=== PATIENT | female | born 1945 | race Caucasian/White ===

== ENCOUNTER 2020-08-15 15:56 | Inpatient (IN) | payer MEDICARE, OTHER, SELFPAY ==
[2020-08-15] VITALS (11 sets, daily range): BP systolic 120–166; BP diastolic 54–110; PULSE 76–94; RESP 17–28; TEMP 36.7–37; O2SAT 91–97; BMI 32.7
--- NOTE | ~2020-08-15 | XR_ITS ---
EXAMINATION: XR chest 1V portable DATE: 08/15/2020 16:27 INDICATION: Cough. Hypoxia. TECHNIQUE: A single frontal view of the chest was obtained. COMPARISON: None. FINDINGS: The chest demonstrates clear lungs without pneumonia, pleural effusion, or pneumothorax. Th e heart size is normal. IMPRESSION: 1. No acute cardiopulmonary disease. Reviewed, dictated and finalized at location B.
--- NOTE | 2020-08-15 16:08 | ECG_ITS ---
Measurements Intervals [place] Rate: 83 P: 100 MS: 161 QRS: -36 QRSD: 77 T: 64 QT: 361 QTc: 426 Interpretive Statements SINUS RHYTHM LEFT AXIS DEVIATION BASELINE ARTIFACT- I, II, III, AVR, AVL, AVF, V2-V6 BORDERLINE ECG Electronically Signed On 08-15-2020 17:40:51 CDT by Corby Tenorio D.O.
--- NOTE | 2020-08-15 16:08 | ED.SOB ---
HPI - SOB/Dyspnea General Chief Complaint: Shortness of Breath/Dyspnea Stated Complaint: O2 staturation low Time Seen by Provider: 08/15/20 16:08 Source: patient Mode of arrival: ambulatory Limitations: no limitations History of Present Illness HPI Narrative: Patient is a 75-year-old female with a history of hypertension who presents for evaluation of shortness of breath. Patient states she has had increasing shortness of breath over the past 48 hours. She reports cough with increased sputum production. Patient is a daily smoker over the past 50 years. She states now she only intermittently smokes. She denies history of COPD or emphysema. She does not utilize any home oxygen. Patient was seen in her primary care physician's office yesterday for evaluation was sent home on an antibiotic but was noted to have mildly low oxygen saturations in the office today patient has been dyspneic with normal activities of daily living prompting her visit to the emergency department. Patient is triaged with tachypnea, hypoxia, increased work of breathing. She is able to speak in full sentences. She has use of abdominal muscles to breathe. She is denying any chest pain. No leg swelling or leg pain. Denies history of covid vaccination. Related Data Home Medications Medication Instructions Recorded Confirmed alprazolam 1 mg tablet 1 mg PO TID PRN 06/06/19 04/09/20 amlodipine 5 mg tablet 5 mg PO DAILY 06/06/19 04/09/20 aspirin 325 mg tablet,delayed 325 mg PO DAILY 06/06/19 04/09/20 release celecoxib 100 mg capsule 100 mg PO BID 06/06/19 04/09/20 gabapentin 300 mg capsule 300 mg PO DAILY 06/06/19 04/09/20 metoprolol succinate 50 mg capsule 50 mg PO DAILY 06/06/19 04/09/20 sprinkle, ext. release 24 hr omega-3 fatty acids 1,000 mg 1,000 mg PO BID 06/06/19 04/09/20 capsule pantoprazole 40 mg tablet,delayed 40 mg PO QAM 06/06/19 04/09/20 release sennosides 8.6 mg-docusate sodium 1 tab-cap PO DAILY 06/06/19 04/09/20 50 mg tablet simvastatin 40 mg tablet 40 mg PO DAILY 06/06/19 04/09/20 tramadol 50 mg tablet 50 mg PO Q6H PRN 06/06/19 04/09/20 vitamin B12 500 mcg-folic acid 400 1 tablet PO DAILY 06/06/19 04/09/20 mcg tablet polysaccharide iron complex 150 mg 150 mg PO DAILY 09/19/19 04/09/20 iron capsule Allergies Allergy/AdvReac Type Severity Reaction Status Date / Time codeine Allergy Unknown unknown Verified 08/15/20 19:09 morphine Allergy Unknown Unknown Verified 08/15/20 19:09 Penicillins Allergy Unknown Unknown Verified 08/15/20 19:09 Review of Systems Review of Systems: Narrative: CONSTITUTIONAL: Denies fever, chills, or sweats. EYES: Denies visual changes, redness, or discharge. ENT: Denies rhinorrhea, congestion, sore throat, or otalgia. CARDIOVASCULAR: Denies chest pain, palpitations, or edema. RESPIRATORY: Reports cough and shortness of breath GASTROINTESTINAL: Denies abdominal pain, nausea, vomiting, or diarrhea. GENITOURINARY: Denies dysuria or hematuria. SKIN: Denies rash or itching. MUSCULOSKELETAL: Denies back pain, joint pain, or myalgia. NEUROLOGIC: Denies headache, numbness, or weakness. [facility] Past Medical History Medical History Edema leg Family history of cancer Family history of heart disease Family history of MS (multiple sclerosis) Surgical History Surgical History (Updated 08/15/20 @ 20:16 by Kaylynn Asher DO) Corneal transplant status right eye 2003 left eye 2004 History of aorto-femoral bypass (01/2006) bilateral History of cardiac catheterization (~2005) 40% proximal RCA occlusion (performed at [facility]) History of hernia repair (~2009) History of total left knee replacement (~2017) History of tubal ligation Hx of cholecystectomy Family History Family History (Updated 08/15/20 @ 20:10 by Kaylynn Asher DO) Mother Acute myocardial infarction Heart disease Father Family history of malignant neoplasm Other Multip
[2020-08-15] MEDS: SODIUM CHLORIDE 0.9% IV 1,000 ML 999 ML IV CONT (16:27)
[2020-08-15 16:39] LABS: Basophils Percent Auto 0.4 % (0.2-1.2); Hematocrit 59.3 % (37.0-47.0); Hemoglobin 18.9 g/dL (12.0-15.0); Immature Granulocyte Absolute 0.01 K/mm3 (0.00-0.031); Immature Granulocyte Percent A 0.1 % (0-0.5); Lymphocytes Absolute Auto 1.26 K/mm3 (0.9-3.2); Lymphocytes Percent Auto 17.4 % (18.3-44.2); Mean Corpuscular HGB Conc 31.9 g/dl (32-36); Mean Corpuscular Hemoglobin 30.7 pg (26-34); Mean Corpuscular Volume 96.4 fl (80-100); Mean Platelet Volume 10.4 fl (7.4-10.4); Monocytes Absolute Auto 0.8 K/mm3 (0.1-0.6); Monocytes Percent Auto 11.2 % (2.6-8.5); Neutrophils Absolute Auto 5.1 K/mm3 (1.3-6.7); Neutrophils Percent Auto 70.9 % (45.5-73.1); Platelet Count Result 135 k/mm3 (150-375); Red Blood Count 6.15 M/mm3 (4.2-5.4); White Blood Count 7.3 K/mm3 (4.5-10.0)
[2020-08-15 16:44] LABS: Alveolar/Arterial O2 Gradient 187.7 mmHg; Base Excess ABG 1.3 mEq/l (+/-2.0); Carboxyhemoglobin 2.2 % THb (0-2.0); Fractional Inspired Oxygen 52 %; HCO3 ABG 31.3 mEq/l (22.0-26.0); Methemoglobin ABG 0.4 %THb (0-1.5); Oxygen Content ABG 24.1 %vol (16.0-22.0); Oxygen Saturation ABG 96.7 % (95.0-100.0); Oxyhemoglobin 94.5 % THb (90.0-100.0); PO2 ABG 102.9 mmHg (80.0-100.0); PO2 FiO2 Ratio Arterial Blood 1.98 %; Reduced Hemoglobin 2.9 %THb (0-5.0); Total Hemoglobin 18.1 g/dL (12.0-18.0)
[2020-08-15 16:45] LABS: Device HIGH FLOW NASAL CANN; Modified Allen's Test Pass; PCO2 ABG 71.6 mmHg (35.0-45.0); Site Drawn LEFT RADIAL; pH ABG 7.259 (7.350-7.450)
[2020-08-15 16:47] LABS: Prothrombin Time 13.4 Seconds (11.1-14.7)
[2020-08-15 16:48] LABS: Partial Thromboplastin Time 26.8 SECONDS (22.3-36.8)
[2020-08-15 16:52] LABS: Alanine Aminotransferase 17 U/L (4-35); Albumin Level 4.6 g/dL (3.5-5.1); Alkaline Phosphatase 103 U/L (38-126); Anion Gap 9 mmol/L (8-16); Aspartate Amino Transferase 28 U/L (14-36); Bilirubin,Total 0.9 mg/dL (0.2-1.3); Blood Urea Nitrogen 10 mg/dL (7-17); CRP 1.6 mg/dL (<1.0); Calcium 9.4 mg/dL (8.4-10.2); Carbon Dioxide 32 mmol/L (22-30); Chloride 97 mmol/L (98-107); Estimated Glomerular Filt Rate > 60; Glucose 122 mg/dL (65-105); Potassium 4.1 mmol/L (3.4-5.0); Sodium 138 mmol/L (137-145)
[2020-08-15] MEDS: IPRATROPIUM BR 0.02% INH SOLN 0.5 MG/2.5 ML VIAL 1 MG INHALATION (16:55)
[2020-08-15] MEDS: ALBUTEROL SULFATE NEB 2.5 MG/0.5 ML INH 20 MG INHALATION (16:55)
[2020-08-15 17:06] LABS: NT Pro B Type Natriuretic Pept 1680 pg/mL (5-100); Troponin I 0.071 ng/mL (0.000-0.034)
[2020-08-15] MEDS: methylPREDNISolone SOD SUCC 125 MG VIAL IV PUSH (17:07)
[2020-08-15] MEDS: MAGNESIUM SULF 2 GM/WATER 50ML 2 GM/50 ML BAG IVPB (17:07)
[2020-08-15 17:22] LABS: Lactic Acid Reflex 1.1 mmol/L (0.7-2.1)
[2020-08-15 18:08] LABS: Alveolar/Arterial O2 Gradient 104.8 mmHg; Base Excess ABG -4.4 mEq/l (+/-2.0); Carboxyhemoglobin 2.3 % THb (0-2.0); Fractional Inspired Oxygen 35 %; HCO3 ABG 23.3 mEq/l (22.0-26.0); Methemoglobin ABG 0.3 %THb (0-1.5); Oxygen Content ABG 23.5 %vol (16.0-22.0); Oxygen Saturation ABG 94.8 % (95.0-100.0); PCO2 ABG 52.3 mmHg (35.0-45.0); Reduced Hemoglobin 5.4 %THb (0-5.0); Total Hemoglobin 18.2 g/dL (12.0-18.0)
[2020-08-15 18:09] LABS: Device NON-INVASIVE VENT; Modified Allen's Test Pass; Site Drawn LEFT RADIAL; pH ABG 7.267 (7.350-7.450)
[2020-08-15 18:10] LABS: Non-Invasive Expiratory Pressure 5 CMH2O; Non-Invasive Inspiratory Pressure 15 CMH2O; Non-Invasive Vent Rate 4 /MIN
[2020-08-15 18:48] LABS: Add Urine Microscopic? NO; Appearance Urine Clear (Clear); Bilirubin Urine Negative (Negative); Blood Urine Negative (Negative); Color Urine Yellow (Yellow); Glucose Urine UA Negative (Negative); Ketones Urine Negative (Negative); Leukocyte Esterase Ur Negative LEU/UL (Negative); Nitrate Urine Negative (Negative); Protein Urine Negative (Negative); Specific Grav Ur 1.008 (1.001-1.035); Urobilinogen Urine Negative mg/dL (<2.0)
--- NOTE | 2020-08-15 19:34 | PC.NURSE ---
HILLARYAR faxed to IMU department by MERCEDES Chiang at 1920 p.m. This patient to go to IMU bed 211.
--- NOTE | 2020-08-15 19:59 | PM.IMHP ---
H&P: HPI History of Present Illness Date/Time: 08/15/20 19:59 Chief Complaint: Shortness of breath Narrative: 75-year-old female with past medical history of peripheral artery disease, COPD and continued tobacco use who presented to the ER with cough, shortness of breath and hypoxia. The patient had went to her primary care physician's office on 08/14/2020 due to cough and shortness of breath. At that time she had a COVID test completed which came back negative today. She reports that she has been having cough productive of clear sputum since the . She denies any recent ill contacts. She has not received a COVID vaccine. She reported a temperature of 99? on 06/14/2020. She had some associated cold chills. She denies any chest pain. She has not noticed any wheezing. She reports that she feels similar to when she had pneumonia in the past. She denies any lower extremity swelling, orthopnea or paroxysmal nocturnal dyspnea. She has had some decreased appetite. She has not had any nausea or vomiting. She does have occasional constipation but none recently. She has had some stress urinary incontinence due to her coughing. She denies any dysuria, hematuria or changes in urinary urgency. She reports that when she went to her doctor's office on the her oxygen level was down in the 70s . She was told to come back to office the next day for re-evaluation . She was given a shot which I assume was a steroid injection and sent home with azithromycin. She has taken 2 days of the azithromycin without improvement in her symptoms. Review of Systems Review of Systems: Narrative: 12 systems were reviewed with pertinent positives and negatives per HPI. Except as documented in the HPI, all other systems were reviewed and are negative. [facility] Past Medical History Medical History (Updated 08/15/20 @ 21:38 by Kaylynn Asher DO) Anxiety Continuous tobacco abuse COPD (chronic obstructive pulmonary disease) Diastolic dysfunction (~05/2017) EF 60-65% with grade 1 diastolic dysfunction and trace mitral valve regurgitation GERD (gastroesophageal reflux disease) Hypertension Obesity PAD (peripheral artery disease) right aortofemoral bypass, left peroneal occlusion Right retinal detachment SLE (systemic lupus erythematosus) Surgical History Surgical History (Updated 08/15/20 @ 22:36 by Kaylynn Asher DO) Corneal transplant status right eye 2003 left eye 2005 History of aorto-femoral bypass (01/2006) bilateral History of appendectomy History of cardiac catheterization (~2005) 40% proximal RCA occlusion (performed at [place]) History of hernia repair (~2009) 10 ventral hernias that were all repaired time 1 operative procedure History of total left knee replacement (~2017) History of tubal ligation Hx of cholecystectomy (~1969) Family History Family History Mother Acute myocardial infarction Heart disease, Onset Age: 53 Father Lung cancer Alcoholic cirrhosis Sibling Throat cancer brother who is Multiple sclerosis younger sister who is Intracerebral aneurysm sister who during childbirth from aneurysm Lymphoma sister Social History Social History (Updated 08/15/20 @ 21:43 by Kaylynn Asher DO) Social History: She lives in [facility] with her of 43 years. She has smoked as much as packs of cigarettes per week since the age of 15. she is currently down to smoking a few puffs of a cigarette a day. She denies any alcohol or illicit substance use. 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 She has a daughter and a son. Primary care physician: Dr. Jesús Montes Code status: Full code Surrogate decision maker: Smoking packs per day: 0.10 Smoking cigarettes per day: 2.0 Years smoked: 46 Smoking pack-years: 4.60 Smoking status: Current some day smoker Josue
--- NOTE | 2020-08-15 21:49 | PC.NURSE ---
Report received from MERCEDES Azevedo with the ED by telephone at 3107 p.m.. All questions answered and plan of care reviewed. Patient to be admitted into IMU bed 211.
--- NOTE | 2020-08-15 21:50 | PC.NURSE ---
Dr. Buckner called and gave nurse report to IMU.
--- NOTE | 2020-08-15 22:15 | ADMGEN ---
This patient, Kelsey Mishra, was admitted to IMU Room 211-01 at 2204 p.m from the ED. Patient/family oriented to hospital policies and general routines including ID bracelet, bed and alarms, visiting hours, pain management, procedures, bathroom and other care routines, personal items, smoking policy, room service/diet, and visiting hours. Information on how to activate the Rapid Response Team has been discussed. Patient/Family are encouraged to report perceived risks to care and to ask questions if they do not understand what they are told or what they should do.
[2020-08-15 22:41] LABS: Troponin I 0.064 ng/mL (0.000-0.034)
[2020-08-15 23:55] LABS: Troponin I 0.059 ng/mL (0.000-0.034)
[2020-08-16] VITALS (19 sets, daily range): BP systolic 108–135; BP diastolic 54–74; PULSE 57–99; RESP 18–24; TEMP 36.3–37; O2SAT 91–97
[2020-08-16] MEDS: methylPREDNISolone SOD SUCC 125 MG VIAL 60 MG IV PUSH ×5 (00:40→23:40)
[2020-08-16] MEDS: IPRATROPIUM BR 0.02% INH SOLN 0.5 MG/2.5 ML VIAL INHALATION ×4 (02:03→20:42)
[2020-08-16] MEDS: ALBUTEROL SULFATE NEB 2.5 MG/0.5 ML INH 5 MG INHALATION ×4 (02:03→20:42)
[2020-08-16 04:58] LABS: Fractional Inspired Oxygen 35 %; HCO3 ABG 30.9 mEq/l (22.0-26.0); Oxygen Content ABG 22.9 %vol (16.0-22.0); Oxyhemoglobin 93.3 % THb (90.0-100.0); PO2 ABG 78.9 mmHg (80.0-100.0); PO2 FiO2 Ratio Arterial Blood 2.25 %; Total Hemoglobin 17.5 g/dL (12.0-18.0); pH ABG 7.294 (7.350-7.450)
[2020-08-16 04:59] LABS: Hematocrit 55.2 % (37.0-47.0); Hemoglobin 17.2 g/dL (12.0-15.0); Immature Platelet Fraction Pct 4.6 % (0.9-11.2); Mean Corpuscular HGB Conc 31.2 g/dl (32-36); Mean Corpuscular Hemoglobin 30.5 pg (26-34); Mean Corpuscular Volume 97.9 fl (80-100); Mean Platelet Volume 10.5 fl (7.4-10.4); Platelet Count Result 103 k/mm3 (150-375); Red Blood Count 5.64 M/mm3 (4.2-5.4); Red Cell Distribution Width 12.8 % (11.5-14.5); White Blood Count 2.7 K/mm3 (4.5-10.0)
[2020-08-16 05:00] LABS: PCO2 ABG 65.1 mmHg (35.0-45.0)
[2020-08-16 05:01] LABS: Device BIPAP; Expiratory Pressure 5 cmH2O; Inspiratory Pressure 15 cmH2O; Modified Allen's Test Pass; Site Drawn RIGHT RADIAL
[2020-08-16 05:11] LABS: Anion Gap 5 mmol/L (8-16); Blood Urea Nitrogen 10 mg/dL (7-17); Calcium 8.7 mg/dL (8.4-10.2); Carbon Dioxide 33 mmol/L (22-30); Chloride 101 mmol/L (98-107); Estimated Glomerular Filt Rate > 60; Glucose 155 mg/dL (65-105); Potassium 4.2 mmol/L (3.4-5.0); Sodium 139 mmol/L (137-145)
--- NOTE | 2020-08-16 06:00 | ECG_ITS ---
Measurements Intervals [place] Rate: 65 P: 102 [place]: 167 QRS: -30 QRSD: 74 T: 17 QT: 425 QTc: 442 Interpretive Statements SINUS RHYTHM BASELINE ARTIFACT- II, V4, V6 NORMAL ECG Electronically Signed On 08-16-2020 10:54:07 CDT by Corby Tenorio D.O.
[2020-08-16 10:06] LABS: Base Excess ABG 1.7 mEq/l (+/-2.0); Carboxyhemoglobin 0.7 % THb (0-2.0); Fractional Inspired Oxygen 35 %; HCO3 ABG 29.5 mEq/l (22.0-26.0); Oxygen Content ABG 24.2 %vol (16.0-22.0); Oxygen Saturation ABG 96.2 % (95.0-100.0); PCO2 ABG 57.7 mmHg (35.0-45.0); PO2 ABG 90.5 mmHg (80.0-100.0); PO2 FiO2 Ratio Arterial Blood 2.59 %; Reduced Hemoglobin 4.3 %THb (0-5.0); Total Hemoglobin 18.1 g/dL (12.0-18.0); pH ABG 7.327 (7.350-7.450)
[2020-08-16 10:08] LABS: Device NON-INVASIVE VENT; Modified Allen's Test Pass; Site Drawn LEFT RADIAL
[2020-08-16 10:09] LABS: Non-Invasive Vent Rate 10 /MIN
[2020-08-16] MEDS: NIACIN SA 500 MG TABLET PO ×2 (10:09→18:07)
[2020-08-16] MEDS: OMEGA 3 POLYUNSAT FATTY ACIDS 1 GM CAP PO ×2 (10:09→18:07)
[2020-08-16] MEDS: CYANOCOBALAMIN 500 MCG TABLET PO (10:09)
[2020-08-16] MEDS: ASPIRIN 325 MG ENTERIC TABLET PO (10:09)
[2020-08-16] MEDS: CANDESARTAN CILEXETIL 4 MG TABLET PO (10:09)
[2020-08-16] MEDS: amLODIPine BESYLATE 5 MG TABLET PO (10:09)
[2020-08-16 10:10] LABS: Non-Invasive Expiratory Pressure 5 CMH2O; Non-Invasive Inspiratory Pressure 18 CMH2O
[2020-08-16] MEDS: FOLIC ACID 0.4 MG TABLET PO (10:10)
[2020-08-16] MEDS: ENOXAPARIN 40 MG/0.4 ML SYRINGE SUB-Q (10:10)
[2020-08-16] MEDS: PANTOPRAZOLE 40 MG TABLET PO (10:10)
[2020-08-16] MEDS: ALPRAZolam (*CRX) 0.5 MG TABLET 1 MG PO ×3 (10:35→18:08)
[2020-08-16 15:11] LABS: Base Excess ABG 4.6 mEq/l (+/-2.0); Oxygen Saturation ABG 92.4 % (95.0-100.0)
[2020-08-16 15:12] LABS: Total Hemoglobin 17.5 g/dL (12.0-18.0)
[2020-08-16 15:13] LABS: Oxyhemoglobin 92.4 % THb (90.0-100.0)
[2020-08-16 15:14] LABS: Alveolar/Arterial O2 Gradient 148.4 mmHg; Device NON-INVASIVE VENT; Fractional Inspired Oxygen 40 %; Modified Allen's Test Pass; Oxygen Content ABG 22.7 %vol (16.0-22.0); Site Drawn LEFT RADIAL
[2020-08-16 15:15] LABS: Non-Invasive Expiratory Pressure 5 CMH2O; Non-Invasive Inspiratory Pressure 18 CMH2O; Non-Invasive Vent Rate 10 /MIN
[2020-08-16 16:11] LABS: SARS-CoV-2 RNA PCR Negative
--- NOTE | 2020-08-16 16:30 | PM.IMPN ---
Progress Note: A&P Assessment and Plan (1) Acute respiratory failure with hypoxia and hypercapnia: Code(s): J96.01 - Acute respiratory failure with hypoxia; J96.02 - Acute respiratory failure with hypercapnia Status: Acute Assessment and Plan: The patient has acute hypoxic hypercarbic respiratory failure due to COPD exacerbation. Patient has been admitted as inpatient. She remains on BiPAP with improvement in her pCO2 but not much improvement in her respiratory acidosis. Will continue patient on IV Solu-Medrol 60 mg q.6 hours. Repeat ABG has been ordered for a.m.. Patient will remain on BiPAP overnight and 15/5. Continue scheduled nebulizer treatments with albuterol and Atrovent. 08/16 Patient is 75 year female with history of COPD unfortunately patient still smokes found to have exacerbation of COPD being treated with Solu-Medrol, updraft and Pulmicort, added doxycycline to cover for atypical, patient is being retest for COVID-19 isolated, the ABG today showed remains hypercapnic we have adjusted patient's BiPAP repeat ABG and further recommendation to follow (2) Acute exacerbation of chronic obstructive airways disease: Code(s): J44.1 - Chronic obstructive pulmonary disease with (acute) exacerbation Status: Acute Assessment and Plan: Plan is above (3) Tobacco abuse: Code(s): Z72.0 - Tobacco use Status: Acute Assessment and Plan: Patient was counseled by copy center associate (4) Polycythemia secondary to smoking: Code(s): D75.1 - Secondary polycythemia Status: Acute Assessment and Plan: Remains clinically stable will monitor Additional Plan The patient has acute hypoxic hypercarbic respiratory failure due to COPD exacerbation. Patient has been admitted as inpatient. She remains on BiPAP with improvement in her pCO2 but not much improvement in her respiratory acidosis. Will continue patient on IV Solu-Medrol 60 mg q.6 hours. Repeat ABG has been ordered for a.m.. Patient will remain on BiPAP overnight and 15/5. Continue scheduled nebulizer treatments with albuterol and Atrovent. 3 minutes was spent in tobacco cessation education. The patient was seen and examined while still in the ER. Subjective Date/time seen: The patient has acute hypoxic hypercarbic respiratory failure due to COPD exacerbation. Patient has been admitted as inpatient. She remains on BiPAP with improvement in her pCO2 but not much improvement in her respiratory acidosis. Will continue patient on IV Solu-Medrol 60 mg q.6 hours. Repeat ABG has been ordered for a.m.. Patient will remain on BiPAP overnight and 03/08. Continue scheduled nebulizer treatments with albuterol and Atrovent. 08/16 Patient is 75 year female with history of COPD unfortunately patient still smokes found to have exacerbation of COPD being treated with Solu-Medrol, updraft and Pulmicort, added doxycycline to cover for atypical, patient is being retest for COVID-19 isolated, the ABG today showed remains hypercapnic we have adjusted patient's BiPAP repeat ABG and further recommendation to follow Review of Systems Review of Systems: All systems reviewed & are unremarkable except as noted in HPI and below Objective Data Vital Signs Vital Signs: Vital Signs - 24 hr 08/15/20 17:03 08/15/20 17:04 08/15/20 17:50 Temperature Pulse Rate 80 80 87 Respiratory Rate 19 19 17 Blood Pressure Pulse Oximetry 97 08/15/20 18:32 08/15/20 18:53 08/15/20 22:04 Temperature 98.1 F Pulse Rate 84 83 76 Respiratory Rate 28 H 22 H 18 Blood Pressure 154/110 H 143/54 H 120/58 L Pulse Oximetry 94 96 92 08/15/20 22:13 08/15/20 23:30 08/16/20 00:00 Temperature Pulse Rate 83 94 91 Respiratory Rate 20 Blood Pressure Pulse Oximetry 96 92 08/16/20 00:07 08/16/20 02:00 08/16/20 02:05 Temperature 98.6 F Pulse Rate 83 99 84 Respiratory Rate 22 H 20 Blood Pressure 119/59 L Pulse Oximetry 95
[2020-08-16] MEDS: BUDESONIDE RESPULE NEB 0.5 MG/2 ML AMP INHALATION (20:41)
[2020-08-16] MEDS: METOPROLOL SUCCINATE EXT REL 50 MG TABCR PO (21:26)
[2020-08-16] MEDS: SENNA/DOCUSATE SODIUM TABLET 1 TAB PO (21:26)
[2020-08-16] MEDS: GABAPENTIN 300 MG CAPSULE PO (21:27)
[2020-08-16] MEDS: SIMVASTATIN 20 MG TABLET 40 MG PO (21:27)
[2020-08-17] VITALS (27 sets, daily range): BP systolic 99–132; BP diastolic 43–85; PULSE 48–88; RESP 18–24; TEMP 36.1–37.1; O2SAT 91–95
[2020-08-17] MEDS: IPRATROPIUM BR 0.02% INH SOLN 0.5 MG/2.5 ML VIAL INHALATION ×4 (03:21→19:43)
[2020-08-17] MEDS: ALBUTEROL SULFATE NEB 2.5 MG/0.5 ML INH 5 MG INHALATION ×4 (03:21→19:43)
[2020-08-17] MEDS: methylPREDNISolone SOD SUCC 125 MG VIAL 60 MG IV PUSH ×4 (05:26→23:41)
[2020-08-17] MEDS: BUDESONIDE RESPULE NEB 0.5 MG/2 ML AMP INHALATION ×2 (08:04→19:43)
[2020-08-17 08:23] LABS: Alveolar/Arterial O2 Gradient 119.6 mmHg; Base Excess ABG 1.8 mEq/l (+/-2.0); Fractional Inspired Oxygen 40 %; HCO3 ABG 30.1 mEq/l (22.0-26.0); Oxygen Saturation ABG 96.6 % (95.0-100.0); Oxyhemoglobin 95.6 % THb (90.0-100.0); PO2 ABG 95.9 mmHg (80.0-100.0); Total Hemoglobin 17.8 g/dL (12.0-18.0); pH ABG 7.314 (7.350-7.450)
[2020-08-17 08:26] LABS: Device NON-INVASIVE VENT; Modified Allen's Test Pass; Non-Invasive Expiratory Pressure 8 CMH2O; Non-Invasive Inspiratory Pressure 20 CMH2O; Non-Invasive Vent Rate 18 /MIN; PCO2 ABG 60.6 mmHg (35.0-45.0); Site Drawn RIGHT RADIAL
[2020-08-17 08:26] LABS: Hematocrit 57.3 % (37.0-47.0); Hemoglobin 17.9 g/dL (12.0-15.0); Mean Corpuscular HGB Conc 31.2 g/dl (32-36); Mean Corpuscular Hemoglobin 30.4 pg (26-34); Mean Corpuscular Volume 97.4 fl (80-100); Mean Platelet Volume 10.2 fl (7.4-10.4); Platelet Count Result 109 k/mm3 (150-375); Red Blood Count 5.88 M/mm3 (4.2-5.4); White Blood Count 6.9 K/mm3 (4.5-10.0)
[2020-08-17] MEDS: ALPRAZolam (*CRX) 0.5 MG TABLET 1 MG PO ×3 (08:30→21:07)
[2020-08-17] MEDS: NIACIN SA 500 MG TABLET PO ×2 (08:32→18:06)
[2020-08-17] MEDS: ASPIRIN 325 MG ENTERIC TABLET PO (08:33)
[2020-08-17] MEDS: amLODIPine BESYLATE 5 MG TABLET PO (08:33)
[2020-08-17] MEDS: PANTOPRAZOLE 40 MG TABLET PO (08:33)
[2020-08-17] MEDS: FOLIC ACID 0.4 MG TABLET PO (08:33)
[2020-08-17] MEDS: OMEGA 3 POLYUNSAT FATTY ACIDS 1 GM CAP PO ×2 (08:33→18:07)
[2020-08-17] MEDS: CANDESARTAN CILEXETIL 4 MG TABLET PO (08:34)
[2020-08-17] MEDS: CYANOCOBALAMIN 500 MCG TABLET PO (08:34)
[2020-08-17] MEDS: ENOXAPARIN 40 MG/0.4 ML SYRINGE SUB-Q (08:35)
--- NOTE | 2020-08-17 08:35 | PM.IMPN ---
Progress Note: A&P Assessment and Plan (1) Acute respiratory failure with hypoxia and hypercapnia: Code(s): J96.01 - Acute respiratory failure with hypoxia; J96.02 - Acute respiratory failure with hypercapnia Status: Acute Assessment and Plan: IV Solu-Medrol 60 mg q.6 hours. BiPAP overnight at 15/5. Continue scheduled nebulizer treatments with albuterol and Atrovent. Doxycycline (2) Acute exacerbation of chronic obstructive airways disease: Code(s): J44.1 - Chronic obstructive pulmonary disease with (acute) exacerbation Status: Acute Assessment and Plan: Plan is above (3) Tobacco abuse: Code(s): Z72.0 - Tobacco use Status: Acute Assessment and Plan: Smoking cessation discussed. (4) Polycythemia secondary to smoking: Code(s): D75.1 - Secondary polycythemia Status: Acute Assessment and Plan: Stable (5) Thrombocytopenia: Code(s): D69.6 - Thrombocytopenia, unspecified Status: Acute Assessment and Plan: 08/17 stop enoxaparin and use SCDs for DVT prophylaxis Subjective Date/time seen: 08/17/20 08:35 Interval history: 08/17: Denied sob. Adamant re: no oxygen or cpap/bipap at home. Is willing to quit smoking. Review of Systems Review of Systems: All systems reviewed & are unremarkable except as noted in HPI and below Exam Narrative: Exam Narrative: HEENT: EOMI, PERRL, sclerae nonicteric, pharyngeal mucosa pink and intact NECK: No JVD, adenopathy, or thyromegaly CHEST: Coarse BS with mild insp and exp wheezes, increase AP diameter, prolonged exp phase HEART: NL S1/S2, regular, no murmur ABDOMEN: BS+, soft, nontender, no mass, no bruits EXTREMITIES: No cyanosis, edema, or clubbing NEUROLOGIC: CN intact and symmetric to inspection. MUSCULOSKELETAL: Tone and strength symmetric. PSYCH: Alert. Oriented to person, place, and time. Objective Data Vital Signs Vital Signs: Vital Signs - 24 hr 08/16/20 10:00 08/16/20 12:00 08/16/20 14:00 Temperature 98.2 F Pulse Rate 61 57 L 61 Respiratory Rate 18 Blood Pressure 126/64 Pulse Oximetry 94 08/16/20 15:24 08/16/20 16:00 08/16/20 18:00 Temperature Pulse Rate 90 62 63 Respiratory Rate 22 H 20 Blood Pressure 124/54 L Pulse Oximetry 94 94 08/16/20 20:00 08/16/20 20:43 08/16/20 20:58 Temperature 97.5 F L Pulse Rate 58 L 58 L 59 L Respiratory Rate 18 23 H 23 H Blood Pressure 108/56 L Pulse Oximetry 92 91 08/16/20 21:26 08/16/20 22:00 08/16/20 23:39 Temperature 97.7 F Pulse Rate 77 76 59 L Respiratory Rate 18 Blood Pressure 121/55 L Pulse Oximetry 94 08/17/20 00:00 08/17/20 02:00 08/17/20 03:21 Temperature Pulse Rate 73 51 L 70 Respiratory Rate 22 H Blood Pressure Pulse Oximetry 94 93 08/17/20 03:26 08/17/20 03:48 08/17/20 04:00 Temperature 97.4 F L Pulse Rate 58 L 49 L Respiratory Rate 24 H 20 Blood Pressure 132/85 Pulse Oximetry 94 95 08/17/20 06:00 08/17/20 07:52 Temperature 98 F Pulse Rate 48 L 84 Respiratory Rate 20 Blood Pressure 121/53 L Pulse Oximetry 95 Intake/Output Intake/Output: Intake & Output 08/14/20 08/15/20 08/16/20 08/17/20 23:59 23:59 23:59 23:59 Intake Total 1050 500 Output Total 1175 600 Balance 1050 -675 -600 Meds/Results Medications: Active Medications Generic Name Dose Route Start Last Admin Trade Name Asif PRN Reason Stop Dose Admin Albuterol 5 mg 08/15/20 20:00 08/17/20 08:04 Albuterol Sulfate Neb 2.5 Mg/0.5 Ml Inh INHALATION 5 mg Q6HRT INA Administration Alprazolam 1 mg 08/16/20 13:00 08/16/20 18:08 Alprazolam (*Crx) 0.5 Mg Tablet PO 1 mg TID INA Administration Amlodipine Besylate 5 mg 08/16/20 09:00 08/16/20 10:09 Amlodipine Besylate 5 Mg Tablet PO 5 mg DAILY INA Administration Aspirin 325 mg 08/16/20 09:00 08/16/20 10:09 Aspirin 325 Mg Enteric Tablet PO 325 mg DAILY INA Administrat
[2020-08-17 08:50] LABS: Anion Gap 5 mmol/L (8-16); Blood Urea Nitrogen 22 mg/dL (7-17); Carbon Dioxide 32 mmol/L (22-30); Chloride 101 mmol/L (98-107); Estimated Glomerular Filt Rate > 60; Glucose 148 mg/dL (65-105); Potassium 4.4 mmol/L (3.4-5.0); Sodium 138 mmol/L (137-145)
[2020-08-17] MEDS: SIMVASTATIN 20 MG TABLET 40 MG PO (21:06)
[2020-08-17] MEDS: SENNA/DOCUSATE SODIUM TABLET 1 TAB PO (21:06)
[2020-08-17] MEDS: METOPROLOL SUCCINATE EXT REL 50 MG TABCR PO (21:07)
[2020-08-17] MEDS: GABAPENTIN 300 MG CAPSULE PO (21:07)
[2020-08-18] VITALS (25 sets, daily range): BP systolic 114–132; BP diastolic 44–86; PULSE 54–95; RESP 18–22; TEMP 36.1–36.6; O2SAT 88–98
[2020-08-18] MEDS: IPRATROPIUM BR 0.02% INH SOLN 0.5 MG/2.5 ML VIAL INHALATION ×4 (01:53→19:51)
[2020-08-18] MEDS: ALBUTEROL SULFATE NEB 2.5 MG/0.5 ML INH 5 MG INHALATION ×4 (01:53→19:50)
[2020-08-18 04:26] LABS: Alveolar/Arterial O2 Gradient 123.8 mmHg; Base Excess ABG 3.3 mEq/l (+/-2.0); Carboxyhemoglobin 0.3 % THb (0-2.0); Fractional Inspired Oxygen 40 %; HCO3 ABG 30.9 mEq/l (22.0-26.0); Methemoglobin ABG 0.2 %THb (0-1.5); Oxygen Content ABG 23.1 %vol (16.0-22.0); Oxygen Saturation ABG 96.8 % (95.0-100.0); Oxyhemoglobin 96.1 % THb (90.0-100.0); PCO2 ABG 57.7 mmHg (35.0-45.0); PO2 FiO2 Ratio Arterial Blood 2.38 %; Reduced Hemoglobin 3.4 %THb (0-5.0); Total Hemoglobin 17.1 g/dL (12.0-18.0); pH ABG 7.346 (7.350-7.450)
[2020-08-18 04:28] LABS: Device NON-INVASIVE VENT; Modified Allen's Test Pass; Non-Invasive Inspiratory Pressure 20 CMH2O; Non-Invasive Vent Rate 18 /MIN; Site Drawn RIGHT RADIAL
[2020-08-18 04:29] LABS: Hematocrit 53.3 % (37.0-47.0); Hemoglobin 16.9 g/dL (12.0-15.0); Immature Platelet Fraction Pct 4.7 % (0.9-11.2); Mean Corpuscular HGB Conc 31.7 g/dl (32-36); Mean Corpuscular Hemoglobin 30.8 pg (26-34); Mean Corpuscular Volume 97.3 fl (80-100); Mean Platelet Volume 10.6 fl (7.4-10.4); Platelet Count Result 125 k/mm3 (150-375); Red Blood Count 5.48 M/mm3 (4.2-5.4); Red Cell Distribution Width 12.9 % (11.5-14.5); White Blood Count 7.7 K/mm3 (4.5-10.0)
[2020-08-18 04:29] LABS: Non-Invasive Expiratory Pressure 8 CMH2O
[2020-08-18 04:38] LABS: Anion Gap 5 mmol/L (8-16); Blood Urea Nitrogen 25 mg/dL (7-17); Calcium 8.8 mg/dL (8.4-10.2); Carbon Dioxide 32 mmol/L (22-30); Chloride 99 mmol/L (98-107); Estimated Glomerular Filt Rate > 60; Glucose 153 mg/dL (65-105); Potassium 4.7 mmol/L (3.4-5.0); Sodium 136 mmol/L (137-145)
[2020-08-18] MEDS: methylPREDNISolone SOD SUCC 125 MG VIAL 60 MG IV PUSH ×2 (05:48→20:54)
[2020-08-18] MEDS: ALPRAZolam (*CRX) 0.5 MG TABLET 1 MG PO ×3 (08:11→20:53)
[2020-08-18] MEDS: OMEGA 3 POLYUNSAT FATTY ACIDS 1 GM CAP PO ×2 (08:11→17:37)
[2020-08-18] MEDS: CANDESARTAN CILEXETIL 4 MG TABLET PO (08:11)
[2020-08-18] MEDS: NIACIN SA 500 MG TABLET PO ×2 (08:12→17:37)
[2020-08-18] MEDS: CYANOCOBALAMIN 500 MCG TABLET PO (08:12)
[2020-08-18] MEDS: amLODIPine BESYLATE 5 MG TABLET PO (08:12)
[2020-08-18] MEDS: FOLIC ACID 0.4 MG TABLET PO (08:12)
[2020-08-18] MEDS: ASPIRIN 325 MG ENTERIC TABLET PO (08:12)
[2020-08-18] MEDS: PANTOPRAZOLE 40 MG TABLET PO (08:12)
[2020-08-18] MEDS: BUDESONIDE RESPULE NEB 0.5 MG/2 ML AMP INHALATION ×2 (08:37→19:51)
--- NOTE | 2020-08-18 11:21 | PM.IMPN ---
Progress Note: A&P Assessment and Plan (1) Acute respiratory failure with hypoxia and hypercapnia: Code(s): J96.01 - Acute respiratory failure with hypoxia; J96.02 - Acute respiratory failure with hypercapnia Status: Acute Assessment and Plan: IV Solu-Medrol 60 mg q.6 hours decreased 08/18 to q 12 hrs BiPAP while sleeping at at 15/5 rate 18 with FIO2 0.30 Oxygen at 2.5L, weaning to keep sats in low 90s. Continue scheduled nebulizer treatments with albuterol and Atrovent. Doxycycline Increase activity as tolerated. (2) Acute exacerbation of chronic obstructive airways disease: Code(s): J44.1 - Chronic obstructive pulmonary disease with (acute) exacerbation Status: Acute Assessment and Plan: Plan is above (3) Tobacco abuse: Code(s): Z72.0 - Tobacco use Status: Acute Assessment and Plan: Smoking cessation discussed. (4) Polycythemia secondary to smoking: Code(s): D75.1 - Secondary polycythemia Status: Acute Assessment and Plan: Stable (5) Thrombocytopenia: Code(s): D69.6 - Thrombocytopenia, unspecified Status: Acute Assessment and Plan: 08/17 stop enoxaparin and use SCDs for DVT prophylaxis Subjective Date/time seen: 08/18/20 11:21 Interval history: 08/18: Denied sob at rest. Ate well. Adamant re: no oxygen or cpap/bipap at home. Is willing to quit smoking. Review of Systems Review of Systems: All systems reviewed & are unremarkable except as noted in HPI and below Exam Narrative: Exam Narrative: HEENT: EOMI, PERRL, sclerae nonicteric, pharyngeal mucosa pink and intact NECK: No JVD, adenopathy, or thyromegaly CHEST: Coarse BS with mild scattered insp and diffuse exp wheezes, increase AP diameter, prolonged exp phase HEART: NL S1/S2, regular, no murmur ABDOMEN: BS+, soft, nontender, no mass, no bruits EXTREMITIES: No cyanosis, edema, or clubbing NEUROLOGIC: CN intact and symmetric to inspection. MUSCULOSKELETAL: Tone and strength symmetric. PSYCH: Alert. Oriented to person, place, and time. Objective Data Vital Signs Vital Signs: Vital Signs - 24 hr 08/17/20 12:00 08/17/20 13:32 08/17/20 13:43 Temperature 97.8 F Pulse Rate 69 63 71 Respiratory Rate 18 20 20 Blood Pressure 108/50 L Pulse Oximetry 92 08/17/20 14:00 08/17/20 16:00 08/17/20 16:11 Temperature 98.7 F 98.7 F Pulse Rate 71 88 87 Respiratory Rate 18 18 Blood Pressure 107/43 L 107/43 L Pulse Oximetry 94 91 08/17/20 18:00 08/17/20 19:44 08/17/20 20:00 Temperature 97 F L Pulse Rate 76 82 84 Respiratory Rate 20 18 Blood Pressure 99/48 L Pulse Oximetry 91 08/17/20 20:01 08/17/20 20:02 08/17/20 21:07 Temperature Pulse Rate 79 82 81 Respiratory Rate 20 20 Blood Pressure Pulse Oximetry 95 08/17/20 22:00 08/17/20 23:41 08/17/20 23:47 Temperature 97.3 F L Pulse Rate 77 67 70 Respiratory Rate 21 H 18 Blood Pressure 110/47 L Pulse Oximetry 95 92 08/18/20 00:00 08/18/20 01:45 08/18/20 01:53 Temperature Pulse Rate 63 73 77 Respiratory Rate 22 H 20 Blood Pressure Pulse Oximetry 92 95 08/18/20 01:55 08/18/20 02:00 08/18/20 04:00 Temperature 97.6 F Pulse Rate 54 L 71 62 Respiratory Rate 20 18 Blood Pressure 121/44 L Pulse Oximetry 94 08/18/20 04:18 08/18/20 04:30 08/18/20 06:00 Temperature Pulse Rate 67 71 Respiratory Rate 19 Blood Pressure Pulse Oximetry 94 93 08/18/20 06:04 08/18/20 07:21 08/18/20 08:00 Temperature 97.6 F Pulse Rate 61 74 Respiratory Rate 18 Blood Pressure 114/59 L Pulse Oximetry 93 89 L 92 08/18/20 08:37 08/18/20 08:39 08/18/20 08:52 Temperature Pulse Rate 67 79 Respiratory Rate 20 20 Blood Pressure Pulse Oximetry 91 08/18/20 10:00 Temperature Pulse Rate 80 Respiratory Rate Blood Pressure Pulse Oximetry Intake/Output Intake/Output: Intake & Output 08/15/20 08/16/20 08/17/20
--- NOTE | 2020-08-18 14:18 | PC.NURSE ---
This patient, Kelsey Mishra, was transferred to [[facility] ] on 08/18/20 at 1418. Personal belongings sent with patient. Report given to [ Kavitha]. Appropriate documentation sent with patient.
--- NOTE | 2020-08-18 14:30 | PC.NURSE ---
pt arrived to room 241 via bed, oriented to new room and environment, reviewed plan of care, pt doing well
[2020-08-18] MEDS: METOPROLOL SUCCINATE EXT REL 50 MG TABCR PO (20:52)
[2020-08-18] MEDS: SENNA/DOCUSATE SODIUM TABLET 1 TAB PO (20:53)
[2020-08-18] MEDS: GABAPENTIN 300 MG CAPSULE PO (20:53)
[2020-08-18] MEDS: SIMVASTATIN 20 MG TABLET 40 MG PO (20:53)
[2020-08-19] VITALS (14 sets, daily range): BP systolic 127–139; BP diastolic 61–64; PULSE 61–93; RESP 18–23; TEMP 36.1–36.2; O2SAT 86–96
[2020-08-19] MEDS: IPRATROPIUM BR 0.02% INH SOLN 0.5 MG/2.5 ML VIAL INHALATION ×2 (01:32→08:52)
[2020-08-19] MEDS: ALBUTEROL SULFATE NEB 2.5 MG/0.5 ML INH 5 MG INHALATION ×2 (01:32→08:52)
[2020-08-19 03:49] LABS: Alveolar/Arterial O2 Gradient 80.7 mmHg; Base Excess ABG 6.8 mEq/l (+/-2.0); Carboxyhemoglobin 0.4 % THb (0-2.0); Fractional Inspired Oxygen 30 %; Methemoglobin ABG 0.1 %THb (0-1.5); Oxygen Content ABG 23.3 %vol (16.0-22.0); Oxygen Saturation ABG 92.8 % (95.0-100.0); Oxyhemoglobin 92.2 % THb (90.0-100.0); PCO2 ABG 56.6 mmHg (35.0-45.0); PO2 ABG 66.7 mmHg (80.0-100.0); PO2 FiO2 Ratio Arterial Blood 2.22 %; Reduced Hemoglobin 7.3 %THb (0-5.0); pH ABG 7.397 (7.350-7.450)
[2020-08-19 03:51] LABS: Device NON-INVASIVE VENT; Modified Allen's Test Pass; Site Drawn LEFT RADIAL
[2020-08-19 03:52] LABS: Non-Invasive Expiratory Pressure 5 CMH2O; Non-Invasive Inspiratory Pressure 15 CMH2O; Non-Invasive Vent Rate 18 /MIN
[2020-08-19 05:20] LABS: Hematocrit 54.5 % (37.0-47.0); Hemoglobin 17.4 g/dL (12.0-15.0); Immature Platelet Fraction Pct 4.6 % (0.9-11.2); Mean Corpuscular HGB Conc 31.9 g/dl (32-36); Mean Corpuscular Hemoglobin 30.9 pg (26-34); Mean Corpuscular Volume 96.6 fl (80-100); Mean Platelet Volume 10.1 fl (7.4-10.4); Platelet Count Result 130 k/mm3 (150-375); Red Blood Count 5.64 M/mm3 (4.2-5.4); Red Cell Distribution Width 13.1 % (11.5-14.5); White Blood Count 7.7 K/mm3 (4.5-10.0)
[2020-08-19 05:37] LABS: Anion Gap 8 mmol/L (8-16); Blood Urea Nitrogen 22 mg/dL (7-17); Calcium 8.9 mg/dL (8.4-10.2); Carbon Dioxide 33 mmol/L (22-30); Chloride 98 mmol/L (98-107); Estimated Glomerular Filt Rate > 60; Glucose 140 mg/dL (65-105); Potassium 4.5 mmol/L (3.4-5.0); Sodium 139 mmol/L (137-145)
[2020-08-19] MEDS: ASPIRIN 325 MG ENTERIC TABLET PO (08:34)
[2020-08-19] MEDS: PANTOPRAZOLE 40 MG TABLET PO (08:35)
[2020-08-19] MEDS: amLODIPine BESYLATE 5 MG TABLET PO (08:35)
[2020-08-19] MEDS: NIACIN SA 500 MG TABLET PO (08:35)
[2020-08-19] MEDS: CANDESARTAN CILEXETIL 4 MG TABLET PO (08:35)
[2020-08-19] MEDS: CYANOCOBALAMIN 500 MCG TABLET PO (08:36)
[2020-08-19] MEDS: FOLIC ACID 0.4 MG TABLET PO (08:36)
[2020-08-19] MEDS: OMEGA 3 POLYUNSAT FATTY ACIDS 1 GM CAP PO (08:36)
[2020-08-19] MEDS: ALPRAZolam (*CRX) 0.5 MG TABLET 1 MG PO ×2 (08:36→13:09)
[2020-08-19] MEDS: BUDESONIDE RESPULE NEB 0.5 MG/2 ML AMP INHALATION (08:52)
[2020-08-19] MEDS: methylPREDNISolone SOD SUCC 125 MG VIAL 60 MG IV PUSH (10:00)
--- NOTE | 2020-08-19 16:40 | PM.DS ---
DS: Admitting Diagnosis Admitting Diagnosis Admitting Diagnosis: Shortness of breath DS: Discharge Diagnosis Discharge Diagnosis (1) Acute respiratory failure with hypoxia and hypercapnia: Code(s): J96.01 - Acute respiratory failure with hypoxia; J96.02 - Acute respiratory failure with hypercapnia Status: Acute Assessment and Plan: IV Solu-Medrol 60 mg q.6 hours decreased 5/30 to q 12 hrs BiPAP while sleeping at at 15/5 rate 18 with FIO2 0.30 Oxygen at 2.5L, weaning to keep sats in low 90s. Continue scheduled nebulizer treatments with albuterol and Atrovent. Doxycycline Increase activity as tolerated. (2) Acute exacerbation of chronic obstructive airways disease: Code(s): J44.1 - Chronic obstructive pulmonary disease with (acute) exacerbation Status: Acute Assessment and Plan: Plan is above (3) Tobacco abuse: Code(s): Z72.0 - Tobacco use Status: Acute Assessment and Plan: Smoking cessation discussed. (4) Polycythemia secondary to smoking: Code(s): D75.1 - Secondary polycythemia Status: Acute Assessment and Plan: Stable (5) Thrombocytopenia: Code(s): D69.6 - Thrombocytopenia, unspecified Status: Acute Assessment and Plan: 08/17 stop enoxaparin and use SCDs for DVT prophylaxis DS: Summary Hospital Course Reason for hospitalization: 75-year-old female with past medical history of peripheral artery disease, COPD and continued tobacco use who presented to the ER with cough, shortness of breath and hypoxia. The patient had went to her primary care physician's office on 08/14/2020 due to cough and shortness of breath. At that time she had a COVID test completed which came back negative today. She reports that she has been having cough productive of clear sputum since the . She denies any recent ill contacts. She has not received a COVID vaccine. She reported a temperature of 99? on 06/14/2020. She had some associated cold chills. She denies any chest pain. She has not noticed any wheezing. She reports that she feels similar to when she had pneumonia in the past. She denies any lower extremity swelling, orthopnea or paroxysmal nocturnal dyspnea. She has had some decreased appetite. She has not had any nausea or vomiting. She does have occasional constipation but none recently. She has had some stress urinary incontinence due to her coughing. She denies any dysuria, hematuria or changes in urinary urgency. She reports that when she went to her doctor's office on the her oxygen level was down in the 70s . She was told to come back to office the next day for re-evaluation . She was given a shot which I assume was a steroid injection and sent home with azithromycin. She has taken 2 days of the azithromycin without improvement in her symptoms. Hospital Course: Patient with acute exacerbation of COPD was treated with Solu-Medrol and updraft, as well as doxycycline for atypicals, placed on BiPAP at night, patient is clinically stable and will discharge the patient home today on tapering dose of steroid, patient will continue updraft at home, will follow-up with her primary care as soon as possible patient clinically stable will discharge her today. Time Spent with Patient Time attestation: Total time spent providing and/or coordinating discharge services: Exam Narrative: Exam Narrative: Patient is comfortable, NAD HEENT: eyes are clear and none icteric LUNGS:CTA HEART: RR S1S2 ABD: BS+, Soft and nontender Lower extremities: no edema SKIN: nonjaundiced Neuro: grossly intact. DS: Data Data Completed and Pending Labs on day of discharge: Labs from last 24 hours 08/19/20 08/19/20 08/19/20 04:35 04:35 03:42 WBC 7.7 RBC 5.64 H Hgb 17.4 H Hct 54.5 H MCV 96.6 MCH 30.9 MCHC 31.9 L RDW 13.1 Plt Count 130 L MPV 10.1 % Immature Plt Fraction 4.6 Puncture Site Left radial ABG p
--- NOTE | 2020-08-19 16:51 | HOMEO2EVAL ---
Evaluation was performed at [facility] Home Oxygen Evaluation RC: Home Oxygen (O2) Evaluation Start: 08/19/20 11:31 Freq: ONCE Status: Active Protocol: RPE Activity Type Activity Date Activity User E-Sign Co-Sign Detail Recorded Client Recorded Date Recorded By Document 08/19/20 15:30 RES [email or web address] 08/19/20 16:47 RES Document 08/19/20 15:31 RES [email or web address] 08/19/20 16:48 RES Document 08/19/20 15:32 RES [email or web address] 08/19/20 16:51 RES Document 08/19/20 15:34 RES [email or web address] 08/19/20 16:51 RES Document 08/19/20 15:36 RES [email or web address] 08/19/20 16:51 RES 08/19/20 08/19/20 08/19/20 15:30 15:31 15:32 Home O2 Evaluation Test Phase Resting Resting Exercise Oxygen Delivery Room Air Nasal Cannula Nasal Cannula Oxygen Flow Rate (L/min) 2 2 Fraction of Inspired Oxygen (%) 21 28 28 Pulse Oximetry (90-100 %) 86 L 90 92 Pulse Rate (60-100 beats/min) 85 88 91 Activity Tolerance Good Good Good Home Oxygen Evaluation Comments pt placed on 2lpm due to low sats. Treatment Charges O2 Evaluation - Inpatient 08/19/20 08/19/20 15:34 15:36 Home O2 Evaluation Test Phase Exercise Resting Oxygen Delivery Nasal Cannula Nasal Cannula Oxygen Flow Rate (L/min) 2 2 Fraction of Inspired Oxygen (%) 28 28 Pulse Oximetry (90-100 %) 92 92 Pulse Rate (60-100 beats/min) 93 92 Activity Tolerance Good Good Home Oxygen Evaluation Comments Pt needs 2lpm nasal cannula at rest and with activity at this time. RN is aware and [facility] was notified. Treatment Charges
--- NOTE | 2020-08-19 16:52 | PCRCNOTE ---
Home Oxygen evaluation completed at this time. Patient needs 2lpm Nasal Cannula with rest and activity. RN is aware and [facility] is notified. The Oxygen tank is in the patients room and family informed on how to use it properly.
--- NOTE | 2020-08-19 17:46 | PC.NURSE ---
[facility] closed due to holiday, scripts verbally [facility] for doses for 24 hours until pt can get to [facility] tomorrow
== END 2020-08-19 17:47 | disposition home or self-care (01) | DRG 189 ==
LOC: ANHED 18:59 → ANHIMU 19:20 → ANH2MED 08-18 14:28
PROVIDERS: Internal Medicine; Admitting Provider Family Medicine; Emergency Provider Emergency Medicine; PCP Internal Medicine; Visit Provider Family Medicine
DX: J96.02 Acute respiratory failure with hypercapnia (principal); J44.1 Chronic obstructive pulmonary disease with (acute) exacerbation; E87.2 Acidosis; J96.01 Acute respiratory failure with hypoxia; I10 Essential (primary) hypertension; Z20.822 Contact with and (suspected) exposure to COVID-19; Z94.7 Corneal transplant status; F17.210 Nicotine dependence, cigarettes, uncomplicated; E86.0 Dehydration; R77.8 Other specified abnormalities of plasma proteins; I73.9 Peripheral vascular disease, unspecified; N39.3 Stress incontinence (female) (male); F41.9 Anxiety disorder, unspecified; K21.9 Gastro-esophageal reflux disease without esophagitis; Z68.35 Body mass index [BMI] 35.0-35.9, adult; M32.9 Systemic lupus erythematosus, unspecified; D75.1 Secondary polycythemia; D69.6 Thrombocytopenia, unspecified
CPT/HCPCS: 36415; 36600; 71045; 80048; 80053; 81003; 82375; 82805; 83050; 83605; 83880; 84484; 85025; 85027; 85055; 85610; 85730; 86140; 87040; 93005; 94002; 94003; 94618; 94640; 96361; 96365; 96375; 97161; 97165; 99291; A9270; C9803; J1650; J2930; J3475; J7030; U0003; U0005

== ENCOUNTER 2021-08-20 09:00 | Outpatient (RCR) | payer MEDICARE, OTHER, SELFPAY ==
--- NOTE | 2021-07-23 15:33 | PTOPEVAL ---
PHYSICAL THERAPY INITIAL EVALUATION. Thank you for referring Kelsey Mishra to [facility].? The patient is scheduled to be seen for therapy? 1x/week for 4 weeks. Please review, sign, date and return this plan of care CHRISTY. I agree with and certify that the following plan of care is medically necessary. Referring Physician Date Attending Provider: Daniel Varela MD *PT Outpatient Evaluation Start: 07/23/21 Evaluation Information Diagnosis Knee pain Onset 5-6 months Subjective Information Pt states she has significant Query Text:As Reported By Patient/ knee pain and swelling and has Family for 6 months, she states her knee has not felt right since she had a knee replacement 4 years ago. Prior Level of Function Pain Assessment Left Knee(s) Reported Pain Level 2 Pain Description Aching Pain Frequency Chronic,Continuous Lowest Pain Intensity 2 Greatest Pain Intensity 9 Pain Aggravating Factors Weight Bearing/Standing Lower Extremity Range of Motion Gross Lower Extremity Range of Motion L knee active ROM 120 Comments R knee active ROM 0-129 Lower Extremity Muscle Strength Testing Gross Lower Extremity Strength B LE grossly 4/5 B knee extension 4-/5 B knee flexion 4/5 B hip abduction 3/5 Muscle Length Testing Left Hamstring Length -40 Right Hamstring Length -40 Palpation Assessment Palpation posterior fossa of the knee and inferior to the medial knee joint line Balance Assessment 5 Time Sit to Stand Time in Seconds 23 5 Time Sit to Stand Comments without use of UEs Gait Assessment Other Gait Observations increased lateral trunk lean B PT Clinical Summary Kelsey is a 76 y/o female who presents to therapy today with a diagnosis of L knee bursitis . Today she demonstrate active and passive ROM WNL compared to the uninvolved side. She does have moderate LE weakness throughout of note her hip abductors and knee extensors, as well as gait deviations. Skilled physical therapy services are indicated to address the deficits noted above, for pain management,
--- NOTE | 2021-08-20 09:26 | PTOPEVAL ---
PHYSICAL THERAPY PROGRESS REPORT AND DISCHARGE SUMMARY. Thank you for referring Kelsey Mishra to [facility].? The patient is to be discharged from skilled physical therapy services at this time. Please review, sign, date and return this plan of care CHRISTY. I agree with and certify that the following plan of care is medically necessary. Referring Physician Date Attending Provider: Daniel Varela MD Evaluation Information Diagnosis Knee pain Onset 5-6 months Additional Evaluation Detail Pt refused her put her mask on this date, states she has gotten carbon monoxide poisoning. Subjective Information Pt states her knee is doing Query Text:As Reported By Patient/ better and she has no Family complaints. Pt states she is doing her exercises regularly. Pt states she was able to walk a mile without an increase in pain. Pt reports 100% improvement. Pain Assessment Pain Score 0: Self Report Lower Extremity Range of Motion Gross Lower Extremity Range of Motion L knee active ROM 0-125 Comments R knee active ROM 0-129 Lower Extremity Muscle Strength Testing Gross Lower Extremity Strength B LE grossly 4+/5 B hip extension 3/5 B hip abduction 3+/5 Muscle Length Testing Left Hamstring Length -30 Right Hamstring Length -25 Palpation Assessment Palpation superior to the lateral knee joint line Balance Assessment Time in Seconds 16 5 Time Sit to Stand Comments Initailly: 23s, without use of Query Text:Normative Data: If Greater UEs Than 15 Seconds, 74% Increase Risk for 08/20/21: 16s without the use of Recurrent Falls UEs Gait Assessment Gait Pattern Trendelenburg Gait Other Gait Observations increased lateral trunk lean B Stair Climbing Assessment Technique Alternating Steps,Single Steps Stair Climbing Direction Both Up and Down Stair Climbing Ability Independent Cues Needed For Stair Climbing Tactile,Verbal,Visual Stair Climbing Comments Ascends with the L LE and descends with RLE in a non reciprocal pattern. Able to ascend/descend reciprocally but requires rail for balance Safety Assessment Factors Affecting Safety No Concerns PT Clinical Summary Kelsey presents to therapy today for her progress report following 4 visits of skilled
== END 2021-09-09 14:44 | disposition home or self-care (01) ==
LOC: ANHHIPT 09:00
PROVIDERS: PCP Internal Medicine; Visit Provider Orthopaedic Surgery
DX: M70.52 Other bursitis of knee, left knee (principal); Z96.652 Presence of left artificial knee joint
CPT/HCPCS: 97035; 97110; 97112; 97140; 97161; 97530

== ENCOUNTER 2022-05-05 11:39 | Observation (INO) | payer MEDICARE, OTHER, SELFPAY ==
[2022-05-05] VITALS (12 sets, daily range): BP systolic 113–143; BP diastolic 50–79; PULSE 60–87; RESP 7–26; TEMP 36.4–36.6; O2SAT 89–100; BMI 34.2
--- NOTE | ~2022-05-05 | US_ITS ---
EXAMINATION: US venous doppler [facility] DATE: 05/06/2022 08:35 INDICATION: Shortness of breath TECHNIQUE: [place] scale images without and with compression and Doppler images of the bilateral lower e xtremity veins were obtained. COMPARISON: 08/15/2017 FINDINGS: The right common femoral vein, profunda femoral vein, femoral vein, popliteal vein, peroneal trunk, p osterior tibial veins, and greater saphenous vein are patent. The left common femoral vein, profunda femoral vein, femoral vein, popliteal vein, peroneal trunk, po sterior tibial veins, and greater saphenous vein are patent. IMPRESSION: 1. Patent bilateral lower extremity veins. No evidence of deep venous thrombosis. Reviewed, dictated and finalized at location B. INSTRUCTOR IMPRESSION: 1. Patent bilateral lower extremity veins. No evidence of deep venous thrombosi s.
--- NOTE | ~2022-05-05 | CT_ITS ---
EXAMINATION: CTA chest PE protocol DATE: 05/05/2022 18:01 INDICATION: back pain, sob, elevated dimer TECHNIQUE: Computed tomography angiography (CTA) of the chest was performed with 100 mL Omnipaque-350 intravenous contrast timed to evaluate the pulmonary arteries. Coronal maximum intensity projection 3D-reconstructions were created by the technologist. The dose-length product (DLP) was 486.93 mGy-cm. Automated exposure control and iterative reconstruction technique were employed. COMPARISON: X-ray chest, same date, CT chest 08/28/2016. FINDINGS: Lung parenchyma and airways: Emphysematous and senescent changes. Pleura: Unremarkable. Thoracic inlet, axillae and chest wall: Unremarkable. Thoracic aorta: Moderate arch calcification. No significant dilation. Mediastinum: Borderline mediastinal and hilar lymphadenopathy. Heart and pericardium: Aortic valve calcification. Coronary artery calcifications: Mild. Upper abdomen: Cholecystectomy. Multiple bilateral simple renal cysts. Bones: No acute osseous finding. Pulmonary arteries: Study quality: Adequate. No pulmonary emboli detected. IMPRESSION: No CT evidence of acute pulmonary embolus. Reviewed, dictated and finalized at location K. OPERATOR
--- NOTE | ~2022-05-05 | XR_ITS ---
EXAMINATION: XR chest 2V DATE: 05/05/2022 12:29 INDICATION: Chest pain and shortness of breath TECHNIQUE: PA and lateral views of the chest are obtained. COMPARISON: 08/15/2020 FINDINGS: The lungs are free of acute opacities. No pleural effusion or pneumothorax. The cardiomedia stinal silhouette is normal. There is moderate thoracic spondylosis. Surgical clips in the right uppe r quadrant are likely from prior cholecystectomy. IMPRESSION: 1. No acute cardiopulmonary abnormality. Reviewed, dictated and finalized at location L. ONAL INTERMODAL TRUCK DRIVER
--- NOTE | ~2022-05-05 | US_ITS ---
EXAMINATION: US renal BI DATE: 05/07/2022 09:01 INDICATION: Polycythemia. TECHNIQUE: Multiple ultrasound grayscale images of the kidneys were obtained. COMPARISON: Chest CT 05/05/2022 FINDINGS: The right kidney measures 11.3 x 4.6 x 4.5 cm. The left kidney measures 11.4 x 5.8 x 5.2 cm. The kidn eys demonstrate normal parenchymal echogenicity. There are cysts in the kidneys measuring up to 2.2 c m on the right. There is no hydronephrosis. The bladder is normal. IMPRESSION: 1. Normal kidney sizes. No hydronephrosis. Reviewed, dictated and finalized at location A. DESIGN ENGINEER
--- NOTE | ~2022-05-05 | US_ITS ---
EXAMINATION: US retroperitoneal duplex ltd DATE: 05/07/2022 09:01 INDICATION: Hypertension. TECHNIQUE: Multiple grayscale, color Doppler, and pulsed Doppler images of the kidneys and renal jasiel leoncio were obtained. COMPARISON: Chest CT 05/05/2022 FINDINGS: The aorta peak systolic velocity was not measured. The right renal artery peak systolic velocity is 8 4 cm/s in the proximal segment, 143 cm/s in the mid segment, and 111 cm/s in the distal segment. The left renal artery peak systolic velocity is 185 cm/s in the proximal segment, 136 cm/s in the mid seg ment, and 68 cm/s in the distal segment. IMPRESSION: 1. No Doppler evidence of renal artery stenosis. The chest CT similarly shows no significant renal a rtery stenosis. Reviewed, dictated and finalized at location A. KER HAND IMPRESSION: 1. No Doppler evidence of renal artery stenosis. The chest CT similarly shows no significant renal artery stenosis.
--- NOTE | 2022-05-05 11:41 | ECG_ITS ---
Measurements Intervals [place] Rate: 73 P: 90 [place]: 192 QRS: -27 QRSD: 74 T: 62 QT: 378 QTc: 418 Interpretive Statements SINUS RHYTHM BORDERLINE LEFT AXIS DEVIATION [QRS AXIS < -20] COMPARED TO ECG 08/16/2020 09:32:36 NO SIGNIFICANT CHANGES Electronically Signed On 05-05-2022 16:22:35 [facility] [employer] by Isabelle Ward M.D.
[2022-05-05 12:00] LABS: Basophils Percent Auto 0.3 % (0.2-1.2); Eosinophils Percent Auto 0.5 % (0-4.4); Hemoglobin 17.3 g/dL (12.0-15.0); Immature Granulocyte Absolute 0.01 K/mm3 (0.00-0.031); Immature Granulocyte Percent A 0.2 % (0-0.5); Immature Platelet Fraction Pct 5.2 % (0.9-11.2); Lymphocytes Absolute Auto 1.35 K/mm3 (0.9-3.2); Lymphocytes Percent Auto 22.3 % (18.3-44.2); Mean Corpuscular HGB Conc 29.8 g/dl (32-36); Mean Corpuscular Volume 100.5 fl (80-100); Mean Platelet Volume 10.2 fl (7.4-10.4); Monocytes Absolute Auto 0.4 K/mm3 (0.1-0.6); Monocytes Percent Auto 5.9 % (2.6-8.5); Neutrophils Absolute Auto 4.3 K/mm3 (1.3-6.7); Neutrophils Percent Auto 70.8 % (45.5-73.1); Platelet Count Result 126 k/mm3 (150-375); Red Blood Count 5.77 M/mm3 (4.2-5.4); Red Cell Distribution Width 13.8 % (11.5-14.5); White Blood Count 6.1 K/mm3 (4.5-10.0)
[2022-05-05 12:07] LABS: Alanine Aminotransferase 17 U/L (6-35); Albumin Level 4.2 g/dL (3.5-5.1); Alkaline Phosphatase 102 U/L (38-126); Anion Gap 4 mmol/L (8-16); Aspartate Amino Transferase 21 U/L (14-36); Blood Urea Nitrogen 8 mg/dL (7-17); Calcium 8.2 mg/dL (8.4-10.2); Carbon Dioxide 34 mmol/L (22-30); Chloride 101 mmol/L (98-107); Estimated Glomerular Filt Rate > 60; Glucose 125 mg/dL (65-110); INR 1.1; Lipase 50 U/L (23-300); Partial Thromboplastin Time 29.1 SECONDS (22.3-36.8); Potassium 4.2 mmol/L (3.4-5.0); Prothrombin Time 13.4 Seconds (11.1-14.7); Sodium 139 mmol/L (137-145)
[2022-05-05 12:19] LABS: Troponin I < 0.012 ng/mL (0.000-0.034)
--- NOTE | 2022-05-05 12:21 | PC.NURSE ---
Pt placed on 2 L NC O2. O2 from 89% to 94% Pt taken to XRAY via w/c w/ O2 tank
--- NOTE | 2022-05-05 16:53 | ED.SOB ---
HPI - SOB/Dyspnea General Chief Complaint: Shortness of Breath/Dyspnea <Alanna Marin PA-C - Last Filed: 05/05/22 18:32> Stated Complaint: CP, SOB <Alanna Mrain PA-C - Last Filed: 05/05/22 18:32> Time Seen by Provider: 05/05/22 16:31 <Alanna Marin PA-C - Last Filed: 05/05/22 18:32> Source: patient <JAY Gallardo Last Filed: 05/05/22 18:32> Mode of arrival: ambulatory <JAY Gallardo Last Filed: 05/05/22 18:32> Limitations: no limitations <JAY Gallardo Last Filed: 05/05/22 18:32> History of Present Illness HPI Narrative: This is a 77 year old female that presents to the ER for shortness of breath. Ongoing since last night. Associated with a sharp pain in the right side of her back. Was noted to be hypoxic in triage and placed on 2L via NC. She is not normally on oxygen. Denies fever, cough, or lower extremity edema. <JAY Gallardo Last Filed: 05/05/22 18:32> Related Data Home Medications: Home Medications Medication Instructions Recorded Confirmed aspirin 325 mg tablet,delayed 325 mg PO DAILY 06/06/19 12/02/21 release vitamin B12 500 mcg-folic acid 400 1 tablet PO DAILY 06/06/19 12/02/21 mcg tablet <JAY Gallardo Last Filed: 05/05/22 18:32> Allergies/Adverse Reactions: Allergies Allergy/AdvReac Type Severity Reaction Status Date / Time codeine Allergy Unknown unknown Verified 05/05/22 17:53 morphine Allergy Unknown Unknown Verified 05/05/22 17:53 Penicillins Allergy Unknown Unknown Verified 05/05/22 17:53 cholecalciferol (vitamin D3) AdvReac Mild Abdominal Verified 05/05/22 17:53 [From Vitamin D3] Pain <JAY Gallardo Last Filed: 05/05/22 18:32> Review of Systems Review of Systems: CONSTITUTIONAL: Denies fever CARDIOVASCULAR: Denies chest pain, or edema. RESPIRATORY: Reports dyspnea. Denies cough <Alanna Marin PA-C - Last Filed: 05/05/22 18:32> All systems reviewed & are unremarkable except as noted in HPI and below <Alanna Marin PA-C - Last Filed: 05/05/22 18:32> [facility] Past Medical History Medical History: Medical History Aftercare following left knee joint replacement surgery Anxiety Arthritis Body mass index [BMI] 32.0-32.9, adult (11/29/17) Body mass index [BMI] 34.0-34.9, adult (12/14/17) Body mass index [BMI] 35.0-35.9, adult (06/14/18) Body mass index [BMI] 36.0-36.9, adult (12/13/18) CAD in [place] artery Chronic pain of left knee Continuous tobacco abuse COPD (chronic obstructive pulmonary disease) Diastolic dysfunction (~05/2017) EF 60-65% with grade 1 diastolic dysfunction and trace mitral valve regurgitation ANDRE (dyspnea on exertion) Dyslipidemia Effusion of left knee joint Essential hypertension GERD (gastroesophageal reflux disease) HTN (hypertension) Impaired fasting blood sugar Obesity Obesity (BMI 35.0-39.9 without comorbidity) Other chronic pain PAD (peripheral artery disease) right aortofemoral bypass, left peroneal occlusion PAD (peripheral artery disease) Pes anserine bursitis Preop cardiovascular exam Primary osteoarthritis of left knee Right retinal detachment SLE (systemic lupus erythematosus) Smoking <JAY Gallardo Last Filed: 05/05/22 18:32> Surgical History Surgical History: Surgical History 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
[2022-05-05 17:15] LABS: NT Pro B Type Natriuretic Pept 671 pg/mL (19.9-100)
[2022-05-05] MEDS: IPRATROPIUM BR 0.02% INH SOLN 0.5 MG/2.5 ML VIAL INHALATION ×3 (17:17→19:43)
[2022-05-05] MEDS: ALBUTEROL SULFATE NEB 2.5 MG/3 ML INH INHALATION ×3 (17:18→19:43)
[2022-05-05 17:23] LABS: Base Excess ABG 3.9 mEq/l (+/-2.0); Carboxyhemoglobin 3.6 % THb (0-2.0); Fractional Inspired Oxygen 28 %; HCO3 ABG 32.1 mEq/l (22.0-26.0); Methemoglobin ABG 0.2 %THb (0-1.5); Oxygen Content ABG 21.2 %vol (16.0-22.0); Oxygen Saturation ABG 93.1 % (95.0-100.0); PO2 ABG 72.2 mmHg (80.0-100.0); PO2 FiO2 Ratio Arterial Blood 2.58 %; Reduced Hemoglobin 6.2 %THb (0-5.0); Total Hemoglobin 16.8 g/dL (12.0-18.0); pH ABG 7.331 (7.350-7.450)
[2022-05-05 17:24] LABS: Device NASAL CANNULA; Modified Allen's Test Pass; PCO2 ABG 62.2 mmHg (35.0-45.0); Site Drawn RIGHT RADIAL
[2022-05-05] MEDS: methylPREDNISolone SOD SUCC 125 MG VIAL IV PUSH (17:26)
[2022-05-05 17:45] LABS: Troponin I < 0.012 ng/mL (0.000-0.034)
[2022-05-05 17:58] LABS: Influenza A QL RT-PCR Negative (Negative); Influenza B QL RT-PCR Negative (Negative); SARS-CoV-2 RNA PCR Negative
--- NOTE | 2022-05-05 18:58 | PM.IMHP ---
H&P: HPI History of Present Illness Date/Time: 05/05/22 18:58 Chief Complaint: Shortness of breath Narrative: This is a 77-year-old female patient who was once diagnosed with COPD a couple years ago but has not been following with a devops developer. She does not have oxygen at home currently the patient had oxygen at home several years ago but was told that she did not needed 3 years ago. The patient has been short of breath since last night. His the associated with sharp pain in the right side of her back. The patient was found to be hypoxic in triage and was placed on oxygen at 2 L per nasal cannula. She denied any fever chills or cough or any lower extremity edema. The patient stated she heard herself wheeze. She does not have any nebulizer treatments or inhalers at home. CTA was read as no evidence of pulmonary embolus. Chest x-ray was read as no acute cardiopulmonary abnormality. Her H&H was noted to be 17.3 and 58.0. Platelets are low at 126. D-dimer was 1.6. The patient is awake and talkative. Her ABGs pH 7.33 CO2 was 62.2. However the patient appears to be a chronic CO2 retainer. Troponin nonreactive BNP 671. The patient was found to be negative for influenza A/B and COVID. The patient was given an aspirin, nebulizer treatments, and Solu-Medrol. The patient was admitted to observation status on the date of service of 05/05/2022. Review of Systems Review of Systems: See HPI All systems reviewed & are unremarkable except as noted in HPI and below Constitutional: Constitutional: Reports as per HPI and Reports no additional constitutional complaints Eyes: Eyes: Reports as per HPI and Reports no additional eye complaints ENT: Reports system reviewed and no additional complaints, except as documented and Reports Normal hearing present Cardiovascular: Cardiovascular: Reports no additional cardiovascular complaints Respiratory: Respiratory: Reports no additional respiratory complaints and Reports no additional respiratory complaints Gastrointestinal: Gastrointestinal: Reports as per HPI and Reports no additional gastrointestinal complaints Musculoskeletal: Musculoskeletal: Reports no additional musculoskeletal complaints Integumentary/Breasts: Skin/Breast: Reports system reviewed and no additional complaints, except as docu and Reports as per HPI Neurologic: Reports system reviewed and no additional complaints, except as documented, Reports as per HPI and Reports Normal hearing present Psychiatric: Psychiatric: Reports no additional psychiatric complaints and Reports as per HPI Endocrine: Endocrine: Reports no additional endocrine complaints Hematologic/Lymphatic: Hematologic/Lymphatic: Reports no additional hematologic/lymphatic complaints Allergic/Immunologic: Allergic/Immunologic: Reports no additional allergic/immunologic complaints [facility] Past Medical History Medical History Aftercare following left knee joint replacement surgery Anxiety Arthritis Body mass index [BMI] 32.0-32.9, adult (11/29/17) Body mass index [BMI] 34.0-34.9, adult (12/14/17) Body mass index [BMI] 35.0-35.9, adult (06/14/18) Body mass index [BMI] 36.0-36.9, adult (12/13/18) CAD in [place] artery Chronic pain of left knee Continuous tobacco abuse COPD (chronic obstructive pulmonary disease) Diastolic dysfunction (~05/2017) EF 60-65% with grade 1 diastolic dysfunction and trace mitral valve regurgitation ANDRE (dyspnea on exertion) Dyslipidemia Effusion of left knee joint Essential hypertension GERD (gastroesophageal reflux disease) HTN (hypertension) Impaired fasting blood sugar Obesity Obesity (BMI 35.0-39.9 without comorbidity) Other chronic pain PAD (peripheral artery disease) right aortofemoral bypass, left peroneal occlusion PAD (peripheral artery disease) Pes anserine bursitis Preop cardiovascular exam Primary osteoarthritis of left knee Right retinal detachment SLE (systemic lupus erythematosus) Smoking Surgical History
[2022-05-05 20:29] LABS: Troponin I < 0.012 ng/mL (0.000-0.034)
--- NOTE | 2022-05-05 20:47 | ADMGEN ---
This patient, Kelsey Mishra, was admitted to Medical Room 340-01. Patient/family oriented to hospital policies and general routines including ID bracelet, bed and alarms, visiting hours, pain management, procedures, bathroom and other care routines, personal items, smoking policy, room service/diet, and visiting hours. Information on how to activate the Rapid Response Team has been discussed. Patient/Family are encouraged to report perceived risks to care and to ask questions if they do not understand what they are told or what they should do.
[2022-05-05] MEDS: ALPRAZolam (*CRX) 0.5 MG TABLET 1 MG PO (21:30)
[2022-05-05] MEDS: methylPREDNISolone SOD SUCC 125 MG VIAL 60 MG IV PUSH (23:58)
[2022-05-06] VITALS (18 sets, daily range): BP systolic 130–140; BP diastolic 57–63; PULSE 69–104; RESP 16–22; TEMP 36.4–36.6; O2SAT 91–95
[2022-05-06] MEDS: ALBUTEROL SULFATE NEB 2.5 MG/3 ML INH INHALATION ×3 (03:49→20:58)
[2022-05-06] MEDS: IPRATROPIUM BR 0.02% INH SOLN 0.5 MG/2.5 ML VIAL INHALATION ×3 (03:49→20:58)
[2022-05-06] MEDS: methylPREDNISolone SOD SUCC 125 MG VIAL 60 MG IV PUSH ×2 (06:02→13:32)
[2022-05-06 06:43] LABS: Hematocrit 55.9 % (37.0-47.0); Immature Granulocyte Absolute 0.01 K/mm3 (0.00-0.031); Immature Granulocyte Percent A 0.3 % (0-0.5); Immature Platelet Fraction Pct 7.5 % (0.9-11.2); Lymphocytes Absolute Auto 0.38 K/mm3 (0.9-3.2); Lymphocytes Percent Auto 12.3 % (18.3-44.2); Mean Corpuscular HGB Conc 30.4 g/dl (32-36); Mean Corpuscular Hemoglobin 30.5 pg (26-34); Mean Corpuscular Volume 100.4 fl (80-100); Monocytes Percent Auto 0.6 % (2.6-8.5); Neutrophils Absolute Auto 2.7 K/mm3 (1.3-6.7); Neutrophils Percent Auto 86.8 % (45.5-73.1); Red Blood Count 5.57 M/mm3 (4.2-5.4); Red Cell Distribution Width 13.7 % (11.5-14.5); White Blood Count 3.1 K/mm3 (4.5-10.0)
[2022-05-06 06:57] LABS: Alanine Aminotransferase 19 U/L (6-35); Albumin Level 4.3 g/dL (3.5-5.1); Alkaline Phosphatase 94 U/L (38-126); Anion Gap 11 mmol/L (8-16); Aspartate Amino Transferase 24 U/L (14-36); Bilirubin,Total 0.9 mg/dL (0.2-1.3); Blood Urea Nitrogen 14 mg/dL (7-17); Calcium 8.6 mg/dL (8.4-10.2); Carbon Dioxide 31 mmol/L (22-30); Chloride 99 mmol/L (98-107); Estimated Glomerular Filt Rate > 60; Glucose 166 mg/dL (65-110); Magnesium 2.1 mg/dL (1.6-2.3); Potassium 4.3 mmol/L (3.4-5.0); Sodium 141 mmol/L (137-145)
[2022-05-06 07:19] LABS: Thyroid Stimulating Hormone Reflex 0.178 uIU/mL (0.465-4.68)
[2022-05-06 07:53] LABS: Free T4 Free Thyroxine Reflex 1.47 ng/dL (0.78-2.19)
[2022-05-06 08:37] LABS: Total Triiodothyronine (T3) 1.16 NG/ML (0.97-1.69)
[2022-05-06] MEDS: amLODIPine BESYLATE 5 MG TABLET BY MOUTH (10:20)
[2022-05-06] MEDS: CELECOXIB 200 MG CAPSULE PO (10:20)
[2022-05-06] MEDS: ASPIRIN 325 MG ENTERIC TABLET PO (10:20)
[2022-05-06] MEDS: NIACIN SA 500 MG TABLET BY MOUTH ×2 (10:20→17:24)
[2022-05-06] MEDS: PANTOPRAZOLE 40 MG TABLET PO (10:21)
[2022-05-06] MEDS: ALPRAZolam (*CRX) 0.5 MG TABLET 1 MG PO ×3 (10:21→22:52)
[2022-05-06] MEDS: CANDESARTAN CILEXETIL 4 MG TABLET BY MOUTH (10:50)
--- NOTE | 2022-05-06 10:53 | PCRCNOTE ---
Window of time for administration has passed. See next scheduled administration.
--- NOTE | 2022-05-06 16:28 | PM.IMPN ---
Progress Note: A&P Assessment and Plan (1) Acute respiratory failure with hypoxia and hypercapnia: Code(s): J96.01 - Acute respiratory failure with hypoxia; J96.02 - Acute respiratory failure with hypercapnia Status: Acute Assessment and Plan: ABG on admission 7./72 on 2L. The patient with chronic hypercapnic. Was here in 2020 with similar findings on ABG. Patient denies hx of ALVIN. She was treated with BiPAP at that time but does not appear she was sent home with BiPAP. She refuses to consider BiPAP. She is on room air and only minimal rhonchi. Will check ApneaLink. She may qualify for home O2 at night. Also check home O2 evaluation as well. (2) COPD exacerbation: Code(s): J44.1 - Chronic obstructive pulmonary disease with (acute) exacerbation Status: Acute Assessment and Plan: Patient with wheezing concerning for COPD exacerbation. ABG as mentioned above. She was treated withe nebs and IV steroids. No significant productive cough and CXR clear so abx held. CTA negative for PE but does show emphysematous changes. -continue with nebulized treatment -will stop Solu-Medrol -the patient will need to follow up with pulmonology as an outpatient. On room air but will order home O2 evaluation. 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 ABG noted. Probably related to chronic hypoxia. Will check EPO level and renal US. Start IV fluids [id number] to exclude dehydration. (5) Anxiety: Code(s): F41.9 - Anxiety disorder, unspecified Status: Acute Assessment and Plan: Mood stable. Continue with prn Xanax (6) Dyslipidemia: Code(s): E78.5 - Hyperlipidemia, unspecified Status: Acute Assessment and Plan: LFTs okay. Continue with Crestor and Niacin (7) Tobacco abuse: Code(s): Z72.0 - Tobacco use Status: Acute Assessment and Plan: Patient was educated about the benefits of smoking cessation. (8) GERD (gastroesophageal reflux disease): Code(s): K21.9 - Gastro-esophageal reflux disease without esophagitis Status: Acute Assessment and Plan: Stable. Continue with pantoprazole Subjective Date/time seen: 05/06/22 16:28 Interval history: 77yo with COPD and HTN here for SOB. Assuming care. Chart reviewed. Up to the bathroom and up to the chair. No SOB and only minimal ANDRE. No CP. No wheezing or SOB at rest. No pruritus with hot showers. Requesitng discharge. Normal sleep study in the past. No hx of ALVIN. Exam Narrative: AF 97.6 140/63 91 16 92% ra Gen - NARD Chest - a few scattered rhonchi, nml RR CV - RRR S1/S2. Tele showing no significant dysrhythmias Abd - Soft, NT/ND, Positive BS Ext - No pedal edema Neuro - Alert and oriented. Nonfocal exam. Psych - Nml mood and affect Skin - Warm and dry Objective Data Vital Signs Vital Signs: Vital Signs - 24 hr 05/05/22 17:25 05/05/22 17:20 05/05/22 18:20 Temperature Pulse Rate 87 76 Respiratory Rate 20 16 Blood Pressure Pulse Oximetry Oxygen Delivery Room Air Oxygen Flow Rate 05/05/22 16:34 05/05/22 16:45 05/05/22 17:27 Temperature Pulse Rate 70 60 Respiratory Rate 7 L 16 9 L Blood Pressure 138/56 L 113/79 133/57 L Pulse Oximetry 96 94 95 Oxygen Delivery Oxygen Flow Rate 05/05/22 18:18 05/05/22 19:45 05/05/22 19:45 Temperature Pulse Rate 76 76 Respiratory Rate 14 13 Blood Pressure 134/50 L Pulse Oximetry 100 92 Oxygen Delivery Nasal Cannula Oxygen Flow Rate 2 05/05/22 19:5
[2022-05-06] MEDS: SODIUM CHLORIDE 0.9% IV 1,000 ML 100 ML IV CONT (17:24)
[2022-05-06 18:54] LABS: Appearance Urine Clear (Clear); Bilirubin Urine Negative (Negative); Blood Urine Negative (Negative); Color Urine Yellow (Yellow); Glucose Urine UA Trace mg/dL (Negative); Ketones Urine Negative (Negative); Leukocyte Esterase Ur Negative LEU/UL (Negative); Nitrate Urine Negative (Negative); Protein Urine Negative (Negative); Specific Grav Ur 1.015 (1.001-1.035); Urobilinogen Urine 0.2 mg/dL (<2.0)
[2022-05-06 19:04] LABS: Mucus Urine Rare /lpf; Squamous Epithelial Cell Urine Rare /hpf (Few); WBC Urine 0-3 /hpf
[2022-05-06 19:12] LABS: Add Urine Microscopic? YES
[2022-05-06] MEDS: ROSUVASTATIN 10 MG TABLET 20 MG PO (20:19)
[2022-05-06] MEDS: GABAPENTIN 300 MG CAPSULE PO (20:19)
[2022-05-06] MEDS: METOPROLOL SUCCINATE EXT REL 50 MG TABCR PO (20:19)
[2022-05-07] VITALS (12 sets, daily range): BP systolic 121–130; BP diastolic 45–56; PULSE 61–89; RESP 17–18; TEMP 36.4–36.6; O2SAT 85–99
[2022-05-07] MEDS: PANTOPRAZOLE 40 MG TABLET PO (08:59)
[2022-05-07] MEDS: CELECOXIB 200 MG CAPSULE PO (08:59)
[2022-05-07] MEDS: ASPIRIN 325 MG ENTERIC TABLET PO (08:59)
[2022-05-07] MEDS: amLODIPine BESYLATE 5 MG TABLET BY MOUTH (08:59)
[2022-05-07] MEDS: NIACIN SA 500 MG TABLET BY MOUTH (08:59)
[2022-05-07] MEDS: CANDESARTAN CILEXETIL 4 MG TABLET BY MOUTH (08:59)
[2022-05-07] MEDS: ALPRAZolam (*CRX) 0.5 MG TABLET 1 MG PO ×2 (09:02→15:33)
[2022-05-07] MEDS: IPRATROPIUM BR 0.02% INH SOLN 0.5 MG/2.5 ML VIAL INHALATION ×2 (09:35→13:37)
[2022-05-07] MEDS: ALBUTEROL SULFATE NEB 2.5 MG/3 ML INH INHALATION ×2 (09:35→13:36)
--- NOTE | 2022-05-07 11:34 | HOMEO2EVAL ---
Evaluation was performed at [facility] Home Oxygen Evaluation RC: Home Oxygen (O2) Evaluation Start: 05/06/22 16:41 Freq: ONCE Status: Active Protocol: RPE Activity Type Activity Date Activity User E-sign Co-sign Detail Recorded Client Recorded Date Recorded By Document 05/07/22 10:40 ABDIEL [email or web address] 05/07/22 11:34 ABDIEL Document 05/07/22 10:42 ABDIEL [email or web address] 05/07/22 11:34 ABDIEL Document 05/07/22 10:43 [email or web address] [email or web address] 05/07/22 11:34 ABDIEL Document 05/07/22 10:45 [email or web address] [email or web address] 05/07/22 11:34 ABDIEL 05/07/22 05/07/22 05/07/22 10:40 10:42 10:43 Home O2 Evaluation [Oxygen] -Test Phase Resting Resting Exercise -Oxygen Delivery Room Air Nasal Cannula Nasal Cannula -Oxygen Flow Rate (L/min) 2 2 [Pulse Oximetry] -Pulse Oximetry (90-100 %) 85 L 92 91 [Pulse Rate] -Pulse Rate (60-100 beats/min) 89 79 83 [Comments] -Home Oxygen Evaluation Comments PATIENT REQUIRES 2L HOME O2 WITH REST AND EXERTION 05/07/22 10:45 Home O2 Evaluation [Oxygen] -Test Phase Resting -Oxygen Delivery Nasal Cannula -Oxygen Flow Rate (L/min) 2 [Pulse Oximetry] -Pulse Oximetry (90-100 %) [Pulse Rate] -Pulse Rate (60-100 beats/min) [Comments] -Home Oxygen Evaluation Comments
--- NOTE | 2022-05-07 11:36 | PCRCNOTE ---
HOME O2 NEEDED.2 L REST AND EXERTION, WILL ARRANGE WITH DME PRIOR TO D/C
[2022-05-07 12:36] LABS: Basophils Percent Auto 0.1 % (0.2-1.2); Eosinophils Percent Auto 0.1 % (0-4.4); Hematocrit 54.7 % (37.0-47.0); Hemoglobin 16.5 g/dL (12.0-15.0); Immature Granulocyte Absolute 0.07 K/mm3 (0.00-0.031); Immature Granulocyte Percent A 0.5 % (0-0.5); Immature Platelet Fraction Pct 4.8 % (0.9-11.2); Lymphocytes Absolute Auto 1.95 K/mm3 (0.9-3.2); Lymphocytes Percent Auto 13.7 % (18.3-44.2); Mean Corpuscular HGB Conc 30.2 g/dl (32-36); Mean Corpuscular Hemoglobin 30.2 pg (26-34); Mean Platelet Volume 10.2 fl (7.4-10.4); Monocytes Percent Auto 7.3 % (2.6-8.5); Neutrophils Absolute Auto 11.2 K/mm3 (1.3-6.7); Neutrophils Percent Auto 78.3 % (45.5-73.1); Platelet Count Result 134 k/mm3 (150-375); Red Blood Count 5.47 M/mm3 (4.2-5.4); Red Cell Distribution Width 14.4 % (11.5-14.5); White Blood Count 14.3 K/mm3 (4.5-10.0)
[2022-05-07 13:53] LABS: Folic Acid 5.2 ng/mL (2.76->20)
--- NOTE | 2022-05-07 14:50 | PM.DS ---
DS: Admitting Diagnosis Discharge Date 05/07/22 Admitting Diagnosis Short of breath DS: Discharge Diagnosis Discharge Diagnosis (1) Acute respiratory failure with hypoxia and hypercapnia: Code(s): J96.01 - Acute respiratory failure with hypoxia; J96.02 - Acute respiratory failure with hypercapnia Status: Acute (2) COPD exacerbation: Code(s): J44.1 - Chronic obstructive pulmonary disease with (acute) exacerbation Status: Acute (3) HTN (hypertension): Code(s): I10 - Essential (primary) hypertension Status: Acute (4) Polycythemia secondary to smoking: Code(s): D75.1 - Secondary polycythemia Status: Acute (5) Anxiety: Code(s): F41.9 - Anxiety disorder, unspecified Status: Acute (6) Dyslipidemia: Code(s): E78.5 - Hyperlipidemia, unspecified Status: Acute (7) Tobacco abuse: Code(s): Z72.0 - Tobacco use Status: Acute (8) GERD (gastroesophageal reflux disease): Code(s): K21.9 - Gastro-esophageal reflux disease without esophagitis Status: Acute DS: Summary Hospital Course Reason for hospitalization: 77yo with COPD and HTN here for SOB. Pleae see H&P for details Hospital Course: patient presents to the emergency room with complaints shortness of breath. ABG on admission 7. on 2L. The patient with chronic hypercapnia with now hypoxia. Was here in 2020 with similar findings on ABG. Patient denies hx of ALVIN. She was treated with BiPAP at that time but does not appear she was sent home with BiPAP. She was home with O2 but was taken off O2 after re-testing. She refuses to consider BiPAP. She was initially weaned to room air and only minimal rhonchi. ApneaLink mildly positive with AHI 5.1 and RI 6.3. She qualified for home O2 at 2Liters at rest and with activity. Patient did have wheezing concerning for COPD exacerbation. She was treated withe nebs and IV steroids. No significant productive cough and CXR clear so abx held. CTA negative for PE but does show emphysematous changes. We stopped steroids. No recurent wheezing. Hgb elevated in the past to 16-18 and unchanged on admission here. Probably related to chronic hypoxia. EPO level pending. No renal artery stenosis. No concerning findings on renal US. Patient was educated about the benefits of smoking cessation. She was also educated about the dangers of open flame near oxygen. She voices understanding. Approximately 4 minutes spent with education on smoking cessation. Patient overall did well. She qualified for home O2 oxygen. She was able be discharged home on 05/07/2022. Time spent discussing smoking cessation with patient: 3 to 10 minutes Status at Discharge Cognitive/behavioral status at discharge: Stable Time Spent with Patient Time attestation: Total time spent providing and/or coordinating discharge services: 34 minutes (excluding time spent on smoking cessation) Time spent: Greater than 30 minutes Exam Narrative: AF ? 121/45 65 18 99% 2L Gen - NARD Chest - a few scattered rhonchi o/w clear. CV - RRR S1/S2 Abd - Soft, NT/ND, Positive BS Ext - No pedal edema Psych - Nml mood and affect Skin - Warm and dry DS: Data Data Completed and Pending Labs on day of discharge: Labs from last 24 hours 05/07/22 05/07/22 05/07/22 12:22 12:22 12:22 WBC 14.3 H RBC 5.47 H Hgb 16.5 H Hct 54.7 H MCV 100.0 MCH 30.2 MCHC 30.2 L RDW 14.4 Plt Count 134 L MPV 10.2 Immature Gran % (Auto) 0.5 Neut % (Auto) 78.3 H Lymph % (Auto) 13.7 L [place] % (Auto) 7.3 Eos % (Auto) 0.1 Baso % (Auto) 0.1 L Lymph # (Auto) 1.95 [place] # (Auto) 1.0 H Eos # (Auto) 0.0 Baso # (Auto) 0.0 Abs Immat Gran (auto) 0.07 H Absolute Neuts (auto) 11.2 H Absolute Nucleated RBC 0.0 Nucleated RBC % 0.0 % Immature Plt Fraction 4.8 Erythropoietin Pending Vitamin B12 828.0 Folate 5.2 Urine Color
--- NOTE | 2022-05-08 09:36 | PC.NURSE ---
Call from pt this am. [employer] now stating that they do not have an order for her to receive a portable o2 concentrator. With the assist of PFT I was able to locate the order and it does state that they sent an order for her to receive one. PFT said they would call company. Return call then made to pt. I informed them that we are contacting the company so that they can receive their concentrator. I let them know that they could call back with any other issues.
[2022-05-10 13:45] LABS: Erythropoietin (EPO) 6.3 mIU/mL (2.6-18.5)
--- NOTE | 2022-05-11 09:53 | PC.NURSE ---
EPO WNL at 6.3. Dr. Perez aware of findings.
== END 2022-05-07 16:40 | disposition home or self-care (01) ==
LOC: ANHED 18:30 → ANH3MED 20:28
PROVIDERS: Emergency Medicine; Nurse Practitioner; Admitting Provider Chiropractor; Emergency Provider Physician Assistant; PCP Physician Assistant Medical; Visit Provider Internal Medicine
DX: J96.01 Acute respiratory failure with hypoxia (principal); J96.02 Acute respiratory failure with hypercapnia; J44.1 Chronic obstructive pulmonary disease with (acute) exacerbation; M54.9 Dorsalgia, unspecified; F41.9 Anxiety disorder, unspecified; M19.90 Unspecified osteoarthritis, unspecified site; I10 Essential (primary) hypertension; I25.10 Atherosclerotic heart disease of native coronary artery without angina pectoris; G89.29 Other chronic pain; D75.1 Secondary polycythemia; M25.562 Pain in left knee; J44.9 Chronic obstructive pulmonary disease, unspecified; Z20.822 Contact with and (suspected) exposure to COVID-19; E78.5 Hyperlipidemia, unspecified; E66.9 Obesity, unspecified; K21.9 Gastro-esophageal reflux disease without esophagitis; Z68.34 Body mass index [BMI] 34.0-34.9, adult; I73.9 Peripheral vascular disease, unspecified; Z98.62 Peripheral vascular angioplasty status; M17.12 Unilateral primary osteoarthritis, left knee; M32.9 Systemic lupus erythematosus, unspecified; F17.210 Nicotine dependence, cigarettes, uncomplicated; Z79.82 Long term (current) use of aspirin; Z79.899 Other long term (current) drug therapy
CPT/HCPCS: 36415; 36600; 71046; 71275; 76775; 80053; 81001; 82375; 82607; 82668; 82746; 82805; 83050; 83690; 83735; 83880; 84439; 84443; 84480; 84484; 85025; 85055; 85380; 85610; 85730; 87636; 93005; 93970; 93976; 94640; 96361; 96374; 96376; 99291; A9270; G0378; J2930; J7030; Q9967

== ENCOUNTER 2022-09-18 08:45 | Outpatient (RCR) | payer MEDICARE, OTHER, SELFPAY ==
--- NOTE | 2022-08-25 16:42 | PTOPEVAL1 ---
Assessment and note entered by Shonna Chapin, PT Evaluation Information Assessment Status Evaluation Diagnosis pain in L knee, pain due to internal ortho/prost device, L artificial knee Subjective Information Pt reports pain in left knee. Primary gave prednisone step-down packet and a shot. Reports this helped with the pain with walking and swelling. Just finished the prednisone. Pain has resolved since this but has numbness in left knee. Reports was in the hospital for dehydration earlier this year. States after was home a few days, noted numbness in her left leg. Reports couldn't even raise leg, had to have help lift leg. But this only lasted a few days then mostly resolved. The numbness in the back of the leg remained. Reported Pain Level Pain Score 0: Self Report Assessment PT Clinical Summary Pt presents with complaints of and diagnosis of left knee pain related to total knee replacement. Pt reports pain in medial knee, demo's increased mobility of ligaments in left knee with anterior drawer testing, and tenderness to medial knee soft tissues. She also demo's gait abnormalities with left midfoot pronation during ambulation. Pt also reports numbness in posterior lower left leg that began earlier this year after being hospitalized. Reports she was able to walk around the hospital without issue, returned home without issue. A few days later, noted numbness to her left leg, and was unable to lift her leg requiring help from her . States this lasted a few days, then resolved with only gastroc numbness remaining. Demos also global reduction in strenght of LLE compared to RLE. Pt as educated numbness may not be related to knee issues and should follow up with primary care provider. Pt will benefit from physical therapy to address left knee instability and pain and improve overall function. Plan of Care Interventions Electrical Stimulation,Hot Pack/Cold Pack,Manual Therapy,Neuro Re-education,Patient/Caregiver Educati,Therapeutic Activities,Therapeutic Exercise PT Services Indicated Yes Treatment Frequency and 2x weekly x 4 weeks Duration These treatments will address the objective and functional deficits as defined above. The patient will be advanced safely and appropriately in order for
--- NOTE | 2022-08-25 16:43 | OPREHPOC ---
Outpatient Therapy Plan of Care This is a Multidisciplinary Plan of Care that may contain components documented by all disciplines (PT, OT, and ST.) PT Problem 1 PT Problem #1 Knowledge Deficit PT Goal 1 Goal Pt will be independent in home exercise program Target Visit 8 PT Goal 2 Goal Pt will demo appropriate shoe [place] in therapy sessions Target Visit 8 PT Problem 2 PT Problem #2 Pain PT Goal 1 Goal Pt will report resolution of pain Target Visit 8 PT Problem 3 PT Problem #3 Impaired Functional Mobil PT Goal 1 Goal Pt will demo 5 time sit<>stand test with appropriate knee and foot position without use of UEs Target Visit 8 PT Problem 4 PT Problem #4 Impaired Strength PT Goal 1 Goal Pt will demo equal strength RLE and LLE in all tested planes
--- NOTE | 2022-09-18 16:47 | PTOPDC ---
Assessment and note entered by Shonna Chapin, PT Assessment Status Discharge Diagnosis pain in L knee, pain due to internal ortho/prost device, L artificial knee Subjective Information Pt reports knee pain has resolved. Numbness in leg has not changed much. Pt stated previously went to PCP and her episode of leg weakness and residual numbness may have been related to neurological episode She reports feeling only 10% improvement overall. does well afte therapy session then reports goes back to prior level between sessions. Reported Pain Level Pain Score 0: Self Report Assessment PT Clinical Summary Pt reports minimal improvement overall in her numbness in her leg. Today she has pain in her left hip which she has seen her provider for in the past. Her left knee is no longer painful and is functional in range. The weakness throughout her left leg appears to be neurologic in nature. Thus patient is being discharged from orthopeadic plan of care in lue of change in diagnosis and focus related to a neurological plan of care.
== END 2022-09-21 10:26 | disposition home or self-care (01) ==
LOC: ANHHIPT 08:45
PROVIDERS: PCP Physician Assistant Medical; Visit Provider Orthopaedic Surgery
DX: M25.562 Pain in left knee (principal); T84.84XD Pain due to internal orthopedic prosthetic devices, implants and grafts, subsequent encounter; Z96.652 Presence of left artificial knee joint
CPT/HCPCS: 97014; 97110; 97112; 97140; 97162; G0283

== ENCOUNTER 2022-10-21 13:15 | Outpatient (RCR) | payer MEDICARE, OTHER, SELFPAY ==
--- NOTE | 2022-09-25 11:40 | PTOPEVAL1 ---
Assessment and note entered by Shonna Chapin, PT Evaluation Information Assessment Status Evaluation Onset 05/07/22 Subjective Information Pt was in hospital in April for dehydration for 5 days. Went home and a couple days later, couldn 't lift her left leg. A couple days after that her leg got some better. Has an MRI scheduled 10/13/22 to see if there is a bleed somewhere that may be causing or caused LLE weakness. Left knee is numb, and has difficulty straightening knee. Hasn't had to use cane in a while, but keeps cane in care just in case. Left and right hip hurt at times. Also has back pain has had for 3-4 years. Reported Pain Level Pain Score 0: Self Report Assessment PT Clinical Summary Pt presents with LLE weakness compared to RLE. History suggestive of neurological cause for weakness and deficits, pt is scheduled for MRI to confirm and assess this possibility later in the month. Pt demo's overall gait, endurance, strength , and balance deficits as well as pain at times in hips and back. Pt will benefit from physical therapy to address deficits, and improve safe independent function. Plan of Care Interventions Electrical Stimulation,Gait Training,Hot Pack/Cold Pack,Manual Therapy,Neuro Re-education, Therapeutic Activities,Therapeutic Exercise,Self- Care/Home Management,Ultrasound Other Interventions Taping PT Services Indicated Yes Treatment Frequency and 2-3x weekly x 8 weeks Duration These treatments will address the objective and functional deficits as defined above. The patient will be advanced safely and appropriately in order for the patient to progress towards his/her prior level of function. Additional exercises will be introduced and as well as a comprehensive home exercise program upon discharge, if needed, ?to ensure carryover of functional gains achieved in the clinic. This treatment plan has been reviewed and agreement upon by the patient.
--- NOTE | 2022-09-25 11:40 | OPREHPOC ---
Outpatient Therapy Plan of Care This is a Multidisciplinary Plan of Care that may contain components documented by all disciplines (PT, OT, and ST.) PT Problem 1 PT Problem #1 Knowledge Deficit PT Goal 1 Goal Pt will be independent in HEP Target Visit 8 PT Goal 2 Goal Pt will verbalize understanding of diagnosis and prognosis Target Visit 12 PT Problem 2 PT Problem #2 Impaired Strength PT Goal 1 Goal Pt will demo equal strength RLE and LLE in all tested planes Target Visit 12 PT Goal 2 Goal Pt will demo strength of 4/5 in all tested planes Target Visit 24 PT Problem 3 PT Problem #3 Impaired Balance PT Goal 1 Goal Pt will demo a KYLE score of 50/56 or greater Target Visit 24 PT Goal 2 Goal Pt will demo ability to perform single leg standing firm surface eyes open (either LE) of 3 seconds or greater Target Visit 12 PT Problem 4 PT Problem #4 Impaired Gait PT Goal 1 Goal Pt will demo equal step length and stance time with ambulation Target Visit 16 PT Goal 2 Goal Pt will demo 2 min walk test with approrpiate gait and 300 ft Target Visit 24
--- NOTE | 2022-10-21 14:07 | PTOPDC ---
Assessment and note entered by Shonna Chapin, PT Assessment Status Discharge Onset 05/07/22 Subjective Information Pt reports no numbness today, still has to watch with Getting up . Has been walking ok without the cane Feel like is 80-90% improved overall Recent MRI findings lesions in brain, currently undergoing testing for this. Reported Pain Level Pain Score 0: Self Report Assessment PT Clinical Summary Pt reports feeling much improved in her mobility, balance, and gait. She shows some improvements in isolated muscle strength testing, and some mild improvements in balance. Cont to demo ankle instability LLE when isolated however functionally is improved in gait cycle. Pt has new recent medical testing findings that are being investigated that could effect further improvements until addressed. Thus patient is being discharged for max benefit at this time.
== END 2022-10-21 14:21 | disposition home or self-care (01) ==
LOC: ANHHIPT 13:15
PROVIDERS: PCP Physician Assistant Medical; Visit Provider Physician Assistant Medical
DX: M79.605 Pain in left leg (principal); R26.9 Unspecified abnormalities of gait and mobility; R53.1 Weakness
CPT/HCPCS: 97014; 97110; 97112; 97161; 97750; G0283